=== PATIENT | female | born 1940 | race Caucasian/White ===

== ENCOUNTER 2022-02-01 17:23 | Inpatient (IN) | payer MEDICARE, MEDICAID, SELFPAY ==
--- NOTE | ~2022-02-01 | CT_ITS ---
EXAMINATION: CT abdomen pelvis w con DATE: 02/01/2022 19:35 INDICATION: Bilateral flank pain TECHNIQUE: Computed tomography (CT) of the abdomen and pelvis was performed with 100 cc Omnipaque 350 intravenous contrast. The dose-length product was 473.15 mGy-cm. Automated exposure control and iter ative reconstruction technique were employed. COMPARISON: None. FINDINGS: There is dependent atelectasis. There is emphysema. Heart size is normal. Moderate size hia mery hernia. There is a small liver cyst. The spleen, pancreas, adrenal glands and kidneys are unremar kable. Gallbladder is present. There is atherosclerosis of the aorta without aneurysm. Nonobstructive bowel gas pattern. No significant vascular abnormality. No lymphadenopathy. No free air or free flui d. Generalized osteopenia. Moderate osteoarthritis of the hips. There are multiple age-indeterminate compression fractures of T12, L3, L4 and L5. Burst fracture of L1. IMPRESSION: 1. No acute abdominal abnormality. 2: Moderate emphysema. 3: Multiple age-indeterminate compression fractures of the lower thoracic and lumbar spine. Reviewed, dictated and finalized at location A.
--- NOTE | ~2022-02-01 | CT_ITS ---
EXAMINATION: CTA chest PE protocol DATE: 02/04/2022 16:50 INDICATION: COPD, R/O PE TECHNIQUE: Computed tomography angiography (CTA) of the chest was performed with 100 mL Omnipaque-350 intravenous contrast timed to evaluate the pulmonary arteries. Coronal maximum intensity projection 3D-reconstructions were created by the technologist. The dose-length product (DLP) was 385.34 mGy-cm. Automated exposure control and iterative reconstruction technique were employed. COMPARISON: None. FINDINGS: Lung parenchyma and airways: Apical blebs. Emphysematous change. Pleura: Biapical pleural scarring. Fat-containing posterior diaphragmatic hernia. Thoracic inlet, axillae and chest wall: Unremarkable. Thoracic aorta: Mild ectasia. Moderate arch calcification. Mediastinum: Moderate hiatal hernia. Heart and pericardium: Normal. Coronary artery calcifications: Mild. Upper abdomen: No significant finding. Bones: No acute osseous finding. Stable thoracolumbar compression fractures. Pulmonary arteries: Study quality: Adequate. No pulmonary emboli detected. IMPRESSION: No CT evidence of acute pulmonary embolus. Reviewed, dictated and finalized at location K.
--- NOTE | ~2022-02-01 | XR_ITS ---
XR chest 1V portable 02/01/2022 19:07 Indication: Shortness of breath. Chronic oxygen therapy. COPD. Procedure: AP portable chest Comparison: 03/20/2018 Findings: Heart size normal. The lungs are hyperinflated which is consistent with, but not diagnostic of chronic obstructive pulmonary disease. There is chronic apical pleural thickening/scarring. No fo giovana air space disease, pulmonary edema, pleural effusion or suspected pneumothorax. Impression: 1: No acute cardiopulmonary disease. Reviewed, dictated and finalized at location A. Impression: 1: No acute cardiopulmonary disease.
[2022-02-01 17:22] VITALS: BP 140/80; PULSE 103; RESP 20; TEMP 37.7; O2SAT 97
--- NOTE | 2022-02-01 17:35 | ECG_ITS ---
Measurements Intervals [place] Rate: 92 P: 76 CO: 132 QRS: 61 QRSD: 90 T: 50 QT: 340 QTc: 421 Interpretive Statements SINUS RHYTHM WITH SINUS ARRHYTHMIA POSSIBLE LEFT ATRIAL ENLARGEMENT [-0.1mV P WAVE IN V1/V2] NONSPECIFIC ST & T-WAVE ABNORMALITY NO PREVIOUS ECG AVAILABLE FOR COMPARISON Electronically Signed On 02-02-2022 7:58:49 CDT by Smooth Moreland M.D.
[2022-02-01] MEDS: SODIUM CHLORIDE 0.9% IV 1,000 ML 999 ML IV CONT (18:05)
--- NOTE | 2022-02-01 18:05 | ED.BACK ---
HPI - Back Pain/Injury General Chief Complaint: Back Pain/Injury Stated Complaint: bilat flank pain Time Seen by Provider: 02/01/22 17:54 Source: patient, EMS and old records reviewed Mode of arrival: EMS Limitations: clinical condition History of Present Illness HPI Narrative: Patient is an 81 y/o female who presents to the ED via EMS with c/o bilateral flank and abdominal pain. Patient reports she was sent to the ED by her grandson today. She is unsure why she is here. She is complaining of lower abdominal pain. There is a strong smell of urine. Patient was found to be in soiled depends and clothes. Patient denying nausea or vomiting. Denying chest pain. She does report shortness of breath. Denies cough. She does have history of COPD. She chronically wears 3 L nasal cannula. She denies running out of oxygen at home. 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 Related Data Home Medications Medication Instructions Recorded Confirmed albuterol sulfate 90 mcg/actuation 1 puff inhalation PRN PRN 02/02/22 02/02/22 aerosol inhaler Shortness Of Breath Or Wheezing fluticasone fur. 100 mcg-umeclid 1 inh inhalation DAILY 02/02/22 02/02/22 62.5 mcg-vilant 25 mcg inhalat.powder (Trelegy Ellipta) hydrocodone 5 mg-acetaminophen 325 1 tablet PO PRN pain 02/02/22 02/02/22 mg tablet meclizine 25 mg tablet 25 mg PO PRN vertigo 02/02/22 02/02/22 pantoprazole 40 mg tablet,delayed 40 mg PO DAILY 02/02/22 02/02/22 release prednisone 10 mg tablet 10 mg PO DAILY 02/02/22 02/02/22 Allergies Allergy/AdvReac Type Severity Reaction Status Date / Time No Known Allergies Allergy Verified 02/01/22 17:40 Review of Systems Review of Systems: CONSTITUTIONAL: Denies fever, chills, or sweats. CARDIOVASCULAR: Denies chest pain. RESPIRATORY: Reports dyspnea. Denies cough. GASTROINTESTINAL: Reports lower abdominal pain. Denies nausea, vomiting, or diarrhea. GENITOURINARY: Denies dysuria or hematuria. MUSCULOSKELETAL: Reports bilateral flank pain. ROS unobtainable: Yes unobtainable due to mental status PMFSH Past Medical History Medical History (Updated 02/02/22 @ 00:01 by Sunshine Sheth PA-C) Chronic respiratory failure with hypoxia, on home oxygen therapy COPD (chronic obstructive pulmonary disease) GERD (gastroesophageal reflux disease) Vertigo Surgical History Surgical History (Updated 02/02/22 @ 00:01 by Sunshine Sheth PA-C) History of appendectomy Social History Social History (Updated 02/02/22 @ 00:01 by Sunshine Sheth PA-C) Smoking status: Former smoker Alcohol intake: never Substance use: never Spiritual care concerns: No Exam Narrative: GENERAL: Mildly ill appearing, obese, non-toxic, in no acute distress. HEAD: Normocephalic, atraumatic. THROAT: Pharynx clear, no exudate. MMs dry. NECK: Supple. No adenopathy, no masses. RESPIRATORY: Airway patent, respirations mildly labored. No significant tachypnea, but some abdominal accessory muscle use. Occasional expiratory wheezing. CARDIOVASCULAR: Tachycardic with regular rhythm without murmurs, rubs, or gallops. Peripheral pulses 2+ and equal bilaterally. ABDOMINAL: Soft, diffuse tenderness throughout lower abdomen/over suprapubic region, nondistended, no hepatosplenomegaly. Normoactive BS. MUSCULOSKELETAL: Moves all extremities. Strength/ROM intact without gross deformities or TTP. No edema. No calf tenderness. SKIN: Warm, dry, normal color. No rashes. NEURO: A&O X2-3, unsure of month/year. Speech clear. Cranial nerves II-XII grossly intact. Steady gait. No ataxic movements. No focal deficits. PSYCHIATRIC: Appropriate mood and affect. Normal interaction. Course Consultations Consultation #1: Discussed case with Dr. Singletary, hospitalist, accepted admission. Date: 02/01/22 Time: 23:55 Vital Signs Vital signs: Vital Signs Temperature 99.8 F H 02/01/22 17: Pulse Rate 103 H 02/01/22 17:22 Respiratory Rate 20 02/01/22 17
[2022-02-01 18:29] LABS: Mucus Urine Rare /lpf; RBC Urine 51-75 /hpf (0-2); WBC Urine 0-3 /hpf
[2022-02-01 18:35] LABS: Add Urine Microscopic? YES; Appearance Urine Clear (Clear); Bilirubin Urine 1+ (Negative); Blood Urine 3+ (Negative); Color Urine Yellow (Yellow); Glucose Urine UA Negative (Negative); Ketones Urine 1+ mg/dL (Negative); Leukocyte Esterase Ur Negative LEU/UL (Negative); Nitrate Urine Negative (Negative); Protein Urine 1+ mg/dL (Negative); Urobilinogen Urine 0.2 mg/dL (<2.0)
[2022-02-01 18:43] LABS: Basophils Percent Auto 0.2 % (0.2-1.2); Eosinophils Absolute Auto 0.1 K/mm3 (0-0.3); Eosinophils Percent Auto 0.4 % (0-4.4); Hematocrit 43.8 % (37.0-47.0); Hemoglobin 13.4 g/dL (12.0-15.0); Immature Granulocyte Absolute 0.05 K/mm3 (0.00-0.031); Immature Granulocyte Percent A 0.4 % (0-0.5); Lymphocytes Absolute Auto 1.67 K/mm3 (0.9-3.2); Lymphocytes Percent Auto 13.2 % (18.3-44.2); Mean Corpuscular HGB Conc 30.6 g/dl (32-36); Mean Corpuscular Hemoglobin 29.6 pg (26-34); Mean Corpuscular Volume 96.9 fl (80-100); Mean Platelet Volume 8.7 fl (7.4-10.4); Monocytes Absolute Auto 0.8 K/mm3 (0.1-0.6); Monocytes Percent Auto 6.4 % (2.6-8.5); Neutrophils Absolute Auto 10.1 K/mm3 (1.3-6.7); Neutrophils Percent Auto 79.4 % (45.5-73.1); Platelet Count Result 304 k/mm3 (150-375); Red Blood Count 4.52 M/mm3 (4.2-5.4); Red Cell Distribution Width 13.7 % (11.5-14.5); White Blood Count 12.7 K/mm3 (4.5-10.0)
--- NOTE | 2022-02-01 18:47 | PC.NURSE ---
Pt BARON Summers calling and requested she be notified w/ any updates/POC. #[phone]
[2022-02-01 18:51] VITALS: PULSE 78; RESP 16; TEMP 37.1; O2SAT 99
[2022-02-01 19:02] LABS: Lactic Acid Reflex 1.5 mmol/L (0.7-2.0)
[2022-02-01 19:05] LABS: Alanine Aminotransferase 12 U/L (6-35); Albumin Level 4.2 g/dL (3.5-5.1); Alkaline Phosphatase 126 U/L (38-126); Anion Gap 10 mmol/L (8-16); Aspartate Amino Transferase 23 U/L (14-36); Bilirubin,Total 0.8 mg/dL (0.2-1.3); Blood Urea Nitrogen 27 mg/dL (7-17); Calcium 9.2 mg/dL (8.4-10.2); Carbon Dioxide 34 mmol/L (22-30); Chloride 97 mmol/L (98-107); Estimated Glomerular Filt Rate 60; Glucose 119 mg/dL (65-110); Potassium 3.3 mmol/L (3.4-5.0); Sodium 141 mmol/L (137-145)
[2022-02-01 21:05] LABS: Troponin I 0.013 ng/mL (0.000-0.034)
[2022-02-01 21:08] LABS: D Dimer 1.69 ug/mL (<0.48)
[2022-02-01] MEDS: IPRATROPIUM BR 0.02% INH SOLN 0.5 MG/2.5 ML VIAL 1.5 MG INHALATION (21:16)
[2022-02-01] MEDS: ALBUTEROL SULFATE NEB 2.5 MG/3 ML INH 15 MG INHALATION (21:16)
[2022-02-01 21:20] VITALS: PULSE 85; RESP 14
[2022-02-01 21:29] LABS: Base Excess ABG 4.5 mEq/l (+/-2.0); Carboxyhemoglobin 2.2 % THb (0-2.0); Fractional Inspired Oxygen 32 %; HCO3 ABG 30.8 mEq/l (22.0-26.0); Methemoglobin ABG 0.3 %THb (0-1.5); Oxygen Saturation ABG 99.4 % (95.0-100.0); Oxyhemoglobin 96.8 % THb (90.0-100.0); PCO2 ABG 53.5 mmHg (35.0-45.0); PO2 ABG 214.3 mmHg (80.0-100.0); Reduced Hemoglobin 0.7 %THb (0-5.0); Total Hemoglobin 12.1 g/dL (12.0-18.0); pH ABG 7.378 (7.350-7.450)
[2022-02-01 21:31] LABS: Device NASAL CANNULA; Modified Allen's Test Pass; Site Drawn LEFT RADIAL
[2022-02-01 22:40] VITALS: BP 133/95; PULSE 113; RESP 18; O2SAT 100
[2022-02-01] MEDS: methylPREDNISolone SOD SUCC 125 MG VIAL IV PUSH (22:40)
[2022-02-02] VITALS (15 sets, daily range): BP systolic 120–152; BP diastolic 63–82; PULSE 78–105; RESP 14–20; TEMP 36.4–36.7; O2SAT 94–98; BMI 27.3
--- NOTE | 2022-02-02 00:50 | PC.NURSE ---
report received from Essence WEBB Ed, no home medication in computer, pt arrived with no home medication list, called son to determine if pt take home medication, no answer, message left to call back. Awaiting pt arrival to floor.
--- NOTE | 2022-02-02 01:35 | PC.NURSE ---
This patient, Erlinda Pak, was admitted to 3 [facility] Surg Room 322-01. Patient/family oriented to hospital policies and general routines including ID bracelet, bed and alarms, visiting hours, pain management, procedures, bathroom and other care routines, personal items, smoking policy, room service/diet, and visiting hours. Information on how to activate the Rapid Response Team has been discussed. Patient/Family are encouraged to report perceived risks to care and to ask questions if they do not understand what they are told or what they should do. report received for Andrew WEBB Ed.
--- NOTE | 2022-02-02 01:39 | PC.NURSE ---
called Md Singletary informed pt medication clarified.
--- NOTE | 2022-02-02 05:36 | PM.IMHP ---
H&P: HPI History of Present Illness Date/Time: 02/02/22 05:36 Chief Complaint: shortness of breath Narrative: This is an 81-year-old female with past medical history significant for COPD, chronic respiratory failure with hypoxia on supplemental oxygen, gastroesophageal reflux disease, patient was brought to the emergency room due to patient being unable to care for herself son found her covered in feces and urine and in distress patient complained of abdominal pain however preliminary workup was significant for CT of abdomen and pelvis was negative for any findings intra-abdominal but did show emphysema and an ABG showed a pCO2 of 53 patient is unable to give much history she is confused. patient has been admitted for further evaluation management and treatment. Review of Systems Review of Systems: ROS unobtainable: Yes unobtainable due to mental status ( confused) [facility] Past Medical History Medical History (Updated 02/02/22 @ 19:34 by Abbie Betancourt MD) Chronic respiratory failure with hypoxia, on home oxygen therapy COPD (chronic obstructive pulmonary disease) GERD (gastroesophageal reflux disease) Vertigo Surgical History Surgical History (Updated 02/04/22 @ 14:47 by Abbie Betancourt MD) History of appendectomy Family History Family History (Updated 02/04/22 @ 14:46 by Abbie Betancourt MD) Other History of appendectomy Social History Social History (Updated 02/02/22 @ 00:01 by Sunshine Sheth PA-C) Smoking status: Former smoker Alcohol intake: never Substance use: never Spiritual care concerns: No Meds Home Medications and Allergies Home Medications Medication Instructions Recorded Confirmed Type albuterol sulfate 90 mcg/actuation 1 puff inhalation PRN PRN 02/02/22 02/02/22 History aerosol inhaler Shortness Of Breath Or Wheezing fluticasone fur. 100 mcg-umeclid 1 inh inhalation DAILY 02/02/22 02/02/22 History 62.5 mcg-vilant 25 mcg inhalat.powder (Trelegy Ellipta) hydrocodone 5 mg-acetaminophen 325 1 tablet PO PRN PRN Pain 02/02/22 02/02/22 History mg tablet meclizine 25 mg tablet 25 mg PO PRN vertigo 02/02/22 02/02/22 History pantoprazole 40 mg tablet,delayed 40 mg PO DAILY 02/02/22 02/02/22 History release prednisone 10 mg tablet 10 mg PO DAILY 02/02/22 02/02/22 History hydrocodone 5 mg-acetaminophen 325 1 tablet PO Q6H PRN Pain #12 tabs 02/06/22 Rx mg tablet prednisone 10 mg tablet 10 mg PO DAILY #30 tabs 02/06/22 Rx Allergies Allergy/AdvReac Type Severity Reaction Status Date / Time No Known Allergies Allergy Verified 02/01/22 17:40 Vital Signs Vital Signs - 24 hr 02/01/22 17:22 02/01/22 18:51 02/01/22 18:51 Temperature 99.8 F H 98.8 F 98.8 F Pulse Rate 103 H 78 Respiratory Rate 20 16 Blood Pressure 140/80 Pulse Oximetry 97 99 Oxygen Delivery Nasal Cannula Oxygen Flow Rate 3 02/01/22 21:20 02/01/22 22:40 02/02/22 01:05 Temperature Pulse Rate 85 113 H 105 H Respiratory Rate 14 18 16 Blood Pressure 133/95 H Pulse Oximetry 100 95 Oxygen Delivery Nasal Cannula Oxygen Flow Rate 3 02/02/22 00:44 02/02/22 04:00 02/02/22 05:03 Temperature Pulse Rate 105 H 78 Respiratory Rate 16 Blood Pressure 120/63 Pulse Oximetry 95 94 Oxygen Delivery Nasal Cannula Oxygen Flow Rate 3 Exam Narrative: patient laying in a stretcher Const: General: comfortable, no acute distress, well developed, alert, awake, ill appearing chronically, lethargic and average body habitus Nutritional Appearance: average body habitus Orientation/consciousness: oriented to person HENMT: Head: normal to inspection, normocephalic and atraumatic Ears: hearing grossly normal bilaterally Face/Nose/Sinus: normal facial exam Face and sinus: normal facial exam Eyes: General: appearance normal, both eyes and all related structures Pupils: Equal, round and reactive pupils present EOM: EOMs intact bilaterally Neck:
[2022-02-02 12:03] LABS: Basophils Percent Auto 0.1 % (0.2-1.2); Hematocrit 36.5 % (37.0-47.0); Hemoglobin 11.2 g/dL (12.0-15.0); Immature Granulocyte Absolute 0.12 K/mm3 (0.00-0.031); Immature Granulocyte Percent A 1.1 % (0-0.5); Lymphocytes Absolute Auto 0.29 K/mm3 (0.9-3.2); Lymphocytes Percent Auto 2.6 % (18.3-44.2); Mean Corpuscular HGB Conc 30.7 g/dl (32-36); Mean Corpuscular Hemoglobin 29.2 pg (26-34); Mean Corpuscular Volume 95.3 fl (80-100); Mean Platelet Volume 8.8 fl (7.4-10.4); Monocytes Absolute Auto 0.2 K/mm3 (0.1-0.6); Monocytes Percent Auto 1.5 % (2.6-8.5); Neutrophils Absolute Auto 10.5 K/mm3 (1.3-6.7); Neutrophils Percent Auto 94.7 % (45.5-73.1); Platelet Count Result 274 k/mm3 (150-375); Red Blood Count 3.83 M/mm3 (4.2-5.4); Red Cell Distribution Width 13.8 % (11.5-14.5); White Blood Count 11.1 K/mm3 (4.5-10.0)
[2022-02-02] MEDS: ALBUTEROL SULFATE NEB 2.5 MG/3 ML INH INHALATION (12:24)
[2022-02-02] MEDS: IPRATROPIUM BR 0.02% INH SOLN 0.5 MG/2.5 ML VIAL INHALATION ×2 (12:24→20:04)
[2022-02-02] MEDS: FLUTICASONE/UMECLIDIN/VILANTER 100-62.5-25 MCG ELLIPTA 1 PUFF INHALATION (12:25)
[2022-02-02 12:38] LABS: Alanine Aminotransferase 15 U/L (6-35); Albumin Level 3.9 g/dL (3.5-5.1); Alkaline Phosphatase 105 U/L (38-126); Anion Gap 9 mmol/L (8-16); Aspartate Amino Transferase 20 U/L (14-36); Bilirubin,Total 0.4 mg/dL (0.2-1.3); Blood Urea Nitrogen 28 mg/dL (7-17); Carbon Dioxide 30 mmol/L (22-30); Chloride 101 mmol/L (98-107); Estimated Glomerular Filt Rate 60; Glucose 150 mg/dL (65-110); Magnesium 2.1 mg/dL (1.6-2.3); Potassium 3.9 mmol/L (3.4-5.0); Sodium 140 mmol/L (137-145)
[2022-02-02 12:39] LABS: CRP 20.6 mg/dL (<1.0)
[2022-02-02 12:41] LABS: Procalcitonin 0.3 ng/mL
[2022-02-02 12:44] LABS: Erythrocyte Sedimentation Rate 118 mm/hr (0-20)
--- NOTE | 2022-02-02 14:24 | PC.NURSE ---
Called pharmacy at [phone] and [phone] for new medication to be sent up.
--- NOTE | 2022-02-02 15:04 | PC.NURSE ---
Called pharmacy again at [phone] for medication, Christian stated he will send them up.
[2022-02-02] MEDS: methylPREDNISolone SOD SUCC 125 MG VIAL 60 MG IV PUSH (16:29)
[2022-02-02] MEDS: PANTOPRAZOLE 40 MG TABLET PO (16:29)
--- NOTE | 2022-02-02 19:05 | PM.IMPN ---
Progress Note: A&P Assessment and Plan (1) Acute exacerbation of chronic obstructive pulmonary disease (COPD): Code(s): J44.1 - Chronic obstructive pulmonary disease with (acute) exacerbation Status: Acute (2) Acute on chronic respiratory failure with hypoxia and hypercapnia: Code(s): J96.21 - Acute and chronic respiratory failure with hypoxia; J96.22 - Acute and chronic respiratory failure with hypercapnia Status: Acute (3) Chronic respiratory failure with hypoxia, on home oxygen therapy: Code(s): J96.11 - Chronic respiratory failure with hypoxia; Z99.81 - Dependence on supplemental oxygen Status: Acute (4) GERD (gastroesophageal reflux disease): Code(s): K21.9 - Gastro-esophageal reflux disease without esophagitis Status: Acute (5) Compression fracture of lumbar vertebrae, non-traumatic: Code(s): M48.56XA - Collapsed vertebra, not elsewhere classified, lumbar region, initial encounter for fracture Status: Acute (6) Burst fracture of lumbar vertebra: Code(s): S32.001A - Stable burst fracture of unspecified lumbar vertebra, initial encounter for closed fracture Status: Acute Plan admit to med surg steroids duonebs PT/OT pain control TSLO brace when out of bed supportive care per pts request hospice discussion tomorrow w family Subjective Date/time seen: 02/02/22 19:05 spoke w pt she is AAOX3 during my interview we discuss her strong desire to go home, her refusal to go to rehab, and her appropriateness for hospice pt states that she does not want to be resuscitated if her her heart were to stop or she became pulseless. she knows that her COPD is a progressive disease and sometimes she goes to sleep at night wondering if she will wake up. She has a caregiver that comes 5 times a week paid for by Medicare. She asks for me to call her [id number] so we can discuss hospice for her. I have Melina as requested and we review possible discharge scenarios. She will speak with Erlinda's 2 sons and the family will come to the hospital tomorrow to speak w me and the pt. + back pain + weakness Review of Systems Review of Systems: All systems reviewed & are unremarkable except as noted in HPI and below Objective Data Vital Signs Vital Signs: Vital Signs - 24 hr 02/01/22 21:20 02/01/22 22:40 02/02/22 01:05 Temperature Pulse Rate 85 113 H 105 H Respiratory Rate 14 18 16 Blood Pressure 133/95 H Pulse Oximetry 100 95 Oxygen Delivery Nasal Cannula Oxygen Flow Rate 3 02/02/22 00:44 02/02/22 04:00 02/02/22 05:03 Temperature Pulse Rate 105 H 78 Respiratory Rate 16 Blood Pressure 120/63 Pulse Oximetry 95 94 Oxygen Delivery Nasal Cannula Oxygen Flow Rate 3 02/02/22 06:00 02/02/22 08:00 02/02/22 08:00 Temperature 98.1 F Pulse Rate 102 H 89 Respiratory Rate 14 Blood Pressure Pulse Oximetry 94 94 Oxygen Delivery Nasal Cannula Oxygen Flow Rate 3 02/02/22 12:29 02/02/22 12:29 02/02/22 12:03 Temperature Pulse Rate 102 H 102 H Respiratory Rate 20 20 Blood Pressure Pulse Oximetry 96 Oxygen Delivery Nasal Cannula Nasal Cannula Oxygen Flow Rate 3 3 02/02/22 12:48 02/02/22 14:00 02/02/22 12:00 Temperature 97.6 F Pulse Rate 100 100 102 H Respiratory Rate 20 16 Blood Pressure 132/82 Pulse Oximetry 94 Oxygen Delivery Oxygen Flow Rate 02/02/22 16:00 Temperature Pulse Rate 89 Respiratory Rate Blood Pressure Pulse Oximetry Oxygen Delivery Oxygen Flow Rate Intake/Output Intake/Output: Intake & Output 01/30/22 01/31/22 02/01/22 02/02/22 23:59 23:59 23:59 23:59 Intake Total 1100 1280 Output Total 300 500 Balance 800 780 Meds/Results Medications: Active Medications Generic Name Dose Route Start Last Admin Trade Name Freq PRN Reason Stop Dose Admin Hydrocodone Bitart/Acetaminophen 1 tab 02/02/22 11:21 Hydrocodone/Acetaminophen (*
--- NOTE | 2022-02-02 19:10 | PC.NURSE ---
charge nurse April informed pt will need TLSO brace from [employer] possible Friday r/t L1 burst fx and multiple compression fx lumbar and thoracic region.
[2022-02-02 19:38] LABS: Creatine Kinase 40 U/L (30-135)
[2022-02-03] VITALS (19 sets, daily range): BP systolic 129–148; BP diastolic 65–72; PULSE 79–102; RESP 12–20; TEMP 36.2–36.9; O2SAT 92–98
[2022-02-03] MEDS: IPRATROPIUM BR 0.02% INH SOLN 0.5 MG/2.5 ML VIAL INHALATION ×6 (00:10→23:53)
[2022-02-03 07:26] LABS: Basophils Percent Auto 0.1 % (0.2-1.2); Hematocrit 33.9 % (37.0-47.0); Hemoglobin 10.6 g/dL (12.0-15.0); Immature Granulocyte Absolute 0.17 K/mm3 (0.00-0.031); Lymphocytes Absolute Auto 0.49 K/mm3 (0.9-3.2); Lymphocytes Percent Auto 2.9 % (18.3-44.2); Mean Corpuscular HGB Conc 31.3 g/dl (32-36); Mean Corpuscular Hemoglobin 30.1 pg (26-34); Mean Corpuscular Volume 96.3 fl (80-100); Mean Platelet Volume 9.3 fl (7.4-10.4); Monocytes Absolute Auto 0.5 K/mm3 (0.1-0.6); Neutrophils Absolute Auto 15.6 K/mm3 (1.3-6.7); Platelet Count Result 286 k/mm3 (150-375); Red Blood Count 3.52 M/mm3 (4.2-5.4); Red Cell Distribution Width 13.7 % (11.5-14.5); White Blood Count 16.7 K/mm3 (4.5-10.0)
[2022-02-03 07:37] LABS: Alanine Aminotransferase 12 U/L (6-35); Albumin Level 3.5 g/dL (3.5-5.1); Alkaline Phosphatase 85 U/L (38-126); Anion Gap 10 mmol/L (8-16); Aspartate Amino Transferase 17 U/L (14-36); Bilirubin,Total 0.3 mg/dL (0.2-1.3); Blood Urea Nitrogen 32 mg/dL (7-17); Calcium 8.9 mg/dL (8.4-10.2); Carbon Dioxide 32 mmol/L (22-30); Chloride 100 mmol/L (98-107); Estimated CRCL calculation 35 ml/min; Estimated Glomerular Filt Rate 53; Glucose 161 mg/dL (65-110); Magnesium 2.3 mg/dL (1.6-2.3); Phosphorus 3.6 mg/dL (2.5-4.5); Potassium 3.8 mmol/L (3.4-5.0); Sodium 142 mmol/L (137-145)
[2022-02-03] MEDS: ALBUTEROL SULFATE NEB 2.5 MG/3 ML INH INHALATION ×2 (07:50→23:53)
[2022-02-03] MEDS: FLUTICASONE/UMECLIDIN/VILANTER 100-62.5-25 MCG ELLIPTA 1 PUFF INHALATION (07:52)
[2022-02-03] MEDS: methylPREDNISolone SOD SUCC 125 MG VIAL 60 MG IV PUSH ×3 (08:25→20:43)
[2022-02-03] MEDS: PANTOPRAZOLE 40 MG TABLET PO (08:27)
--- NOTE | 2022-02-03 10:00 | PM.IMPN ---
Progress Note: A&P Assessment and Plan (1) Acute exacerbation of chronic obstructive pulmonary disease (COPD): Code(s): J44.1 - Chronic obstructive pulmonary disease with (acute) exacerbation Status: Acute (2) Acute on chronic respiratory failure with hypoxia and hypercapnia: Code(s): J96.21 - Acute and chronic respiratory failure with hypoxia; J96.22 - Acute and chronic respiratory failure with hypercapnia Status: Acute (3) Chronic respiratory failure with hypoxia, on home oxygen therapy: Code(s): J96.11 - Chronic respiratory failure with hypoxia; Z99.81 - Dependence on supplemental oxygen Status: Acute (4) GERD (gastroesophageal reflux disease): Code(s): K21.9 - Gastro-esophageal reflux disease without esophagitis Status: Acute Plan admit to med surg steroids duonebs PT/OT pain control TSLO brace when out of bed supportive care per pts request hospice discussion tomorrow w family 02/03/22 TSLO brace ordered will be delivered tomorrow cont current care dc planning to SNF c/s network coordinator dc in 24-48hrs Subjective Date/time seen: 02/03/22 10:00 pt seen w increased work of breathing agrees that if she cannot walk then she will go to rehab. [facility] bedside for conversation. TSLO brace ordered will be delivered tomorrow Review of Systems Review of Systems: All systems reviewed & are unremarkable except as noted in HPI and below Objective Data Vital Signs Vital Signs: Vital Signs - 24 hr 02/02/22 12:29 02/02/22 12:29 02/02/22 12:03 Temperature Pulse Rate 102 H 102 H Respiratory Rate 20 20 Blood Pressure Pulse Oximetry 96 Oxygen Delivery Nasal Cannula Nasal Cannula Oxygen Flow Rate 3 3 02/02/22 12:48 02/02/22 14:00 02/02/22 12:00 Temperature 97.6 F Pulse Rate 100 100 102 H Respiratory Rate 20 16 Blood Pressure 132/82 Pulse Oximetry 94 Oxygen Delivery Oxygen Flow Rate 02/02/22 16:00 02/02/22 19:12 02/02/22 20:07 Temperature Pulse Rate 89 97 Respiratory Rate 14 Blood Pressure Pulse Oximetry 95 Oxygen Delivery Nasal Cannula Oxygen Flow Rate 3 02/02/22 21:28 02/02/22 20:00 02/03/22 00:11 Temperature 97.7 F Pulse Rate 93 92 89 Respiratory Rate 16 14 Blood Pressure 152/69 H Pulse Oximetry 98 Oxygen Delivery Oxygen Flow Rate 02/03/22 00:00 02/03/22 04:00 02/03/22 06:00 Temperature 97.9 F Pulse Rate 79 82 79 Respiratory Rate 14 Blood Pressure 129/65 Pulse Oximetry 92 Oxygen Delivery Oxygen Flow Rate 02/03/22 07:51 02/03/22 07:51 02/03/22 08:38 Temperature Pulse Rate 102 H 86 100 Respiratory Rate 16 16 16 Blood Pressure Pulse Oximetry 98 Oxygen Delivery Nasal Cannula Oxygen Flow Rate 3 Intake/Output Intake/Output: Intake & Output 01/31/22 02/01/22 02/02/22 02/03/22 23:59 23:59 23:59 23:59 Intake Total 1100 1280 720 Output Total 300 500 150 Balance 800 780 570 Meds/Results Medications: Active Medications Generic Name Dose Route Start Last Admin Trade Name Freq PRN Reason Stop Dose Admin Hydrocodone Bitart/Acetaminophen 1 tab 02/02/22 11:21 Hydrocodone/Acetaminophen (*Crx) 5-325 Mg Tablet PO BID PRN Pain Albuterol 2.5 mg 02/02/22 11:27 02/03/22 07:50 Albuterol Sulfate Neb 2.5 Mg/3 Ml Inh INHALATION 2.5 mg Q4HRT PRN Administration Shortness Of Breath Fluticasone/Umeclidinium/Vilanterol 1 puff 02/02/22 12:00 02/03/22 07:52 Fluticasone/Umeclidin/Vilanter 100-62.5-25 Mcg Ellipta INHALATION 1 puff DAILYRT LORENA Administration Ipratropium [place] 0.5 mg 02/02/22 12:00 02/03/22 07:50 Ipratropium Br 0.02% Inh Soln 0.5 Mg/2.5 Ml Vial INHALATION 0.5 mg Q4HRT LORENA Administration Meclizine HCl 25 mg 02/02/22 11:25 Meclizine Hcl 25 Mg Tablet PO Q8H PRN DIZZINESS/VERTIGO Methylprednisolone Sodium Succinate 60 mg 02/02/22 17:00 02/03/22 08:25 Meth
[2022-02-03] MEDS: ALBUTEROL SULFATE NEB 2.5 MG/3 ML INH ×2 (18:32→18:39)
[2022-02-03] MEDS: IPRATROPIUM BR 0.02% INH SOLN 0.5 MG/2.5 ML VIAL (18:39)
--- NOTE | 2022-02-03 19:04 | PCRCNOTE ---
RT given pt TX at 1829. pt breath sound diminished and coarse bilateral. No SOB or increased WOB present at this time, pt was talking what appeared comfortably with family. RT spoke with RN and Dr. Betancourt, pt TX orders has been revised. Pt is order Q4 TX dounebs. Pt next schedule TX is to be given 0000, 02/04/22. Pt is resting RR-14-16, Sp02 95% on 3 liters her home baseline.
[2022-02-04] VITALS (19 sets, daily range): BP systolic 142–155; BP diastolic 64–76; PULSE 78–98; RESP 14–24; TEMP 36.1–36.7; O2SAT 91–100
[2022-02-04] MEDS: IPRATROPIUM BR 0.02% INH SOLN 0.5 MG/2.5 ML VIAL INHALATION ×4 (03:10→20:19)
[2022-02-04] MEDS: ALBUTEROL SULFATE NEB 2.5 MG/3 ML INH INHALATION ×5 (03:10→20:19)
[2022-02-04] MEDS: FLUTICASONE/UMECLIDIN/VILANTER 100-62.5-25 MCG ELLIPTA 1 PUFF INHALATION (08:07)
[2022-02-04] MEDS: PANTOPRAZOLE 40 MG TABLET PO (10:11)
[2022-02-04] MEDS: methylPREDNISolone SOD SUCC 125 MG VIAL 60 MG IV PUSH (10:11)
[2022-02-04 11:12] LABS: Basophils Percent Auto 0.1 % (0.2-1.2); Hematocrit 36.4 % (37.0-47.0); Hemoglobin 11.2 g/dL (12.0-15.0); Immature Granulocyte Absolute 0.33 K/mm3 (0.00-0.031); Immature Granulocyte Percent A 1.7 % (0-0.5); Lymphocytes Absolute Auto 0.24 K/mm3 (0.9-3.2); Lymphocytes Percent Auto 1.2 % (18.3-44.2); Mean Corpuscular HGB Conc 30.8 g/dl (32-36); Mean Corpuscular Hemoglobin 29.9 pg (26-34); Mean Corpuscular Volume 97.1 fl (80-100); Mean Platelet Volume 8.8 fl (7.4-10.4); Monocytes Percent Auto 5.1 % (2.6-8.5); Neutrophils Absolute Auto 17.8 K/mm3 (1.3-6.7); Neutrophils Percent Auto 91.9 % (45.5-73.1); Platelet Count Result 302 k/mm3 (150-375); Red Blood Count 3.75 M/mm3 (4.2-5.4); Red Cell Distribution Width 13.7 % (11.5-14.5); White Blood Count 19.4 K/mm3 (4.5-10.0)
[2022-02-04 11:22] LABS: Anion Gap 8 mmol/L (8-16); Blood Urea Nitrogen 39 mg/dL (7-17); Calcium 8.8 mg/dL (8.4-10.2); Carbon Dioxide 33 mmol/L (22-30); Chloride 102 mmol/L (98-107); Estimated CRCL calculation 35 ml/min; Estimated Glomerular Filt Rate 53; Glucose 163 mg/dL (65-110); Potassium 3.4 mmol/L (3.4-5.0); Sodium 143 mmol/L (137-145)
[2022-02-04 11:42] LABS: D Dimer 1.08 ug/mL (<0.48)
[2022-02-04 11:44] LABS: Hypersegmented Neutrophils Present; Platelet Estimate Adequate (Adequate)
[2022-02-04 11:45] LABS: Poikilocytosis 1+ (NORMAL); Schistocytes None Seen (NORMAL)
--- NOTE | 2022-02-04 13:41 | PCOTNOTE ---
Attempted to see pt this PM, however pt is eating lunch at this time. Continue with plan of care.
--- NOTE | 2022-02-04 13:57 | PM.CNPUL ---
Assessment and Plan Assessment and plan (1) Acute exacerbation of chronic obstructive pulmonary disease (COPD): Code(s): J44.1 - Chronic obstructive pulmonary disease with (acute) exacerbation Status: Acute Assessment and Plan: Patient with current tobacco use (33 PY, current smoking 0.5 PPD), COPD for 5 years on home O2 3 L 24-7, CT of the abdomen and pelvis on 02/01/2022 with [id number] panlobular emphysema. I have no PFTs. Patient is on prednisone 10 mg a day for years as well as triple inhaler with trelegy 100. At baseline the patient states she is short of breath walking across the room on a good day. One year ago she said she could walk half a block. the patient presented with wheezing and I agree with treatment for COPD exacerbation. The patient has been on Solu-Medrol since 02/01 at 10:00 p.m. and currently is on 40 mg q.day. at this point she feels she is no better than when she arrived to the hospital and I would discontinue her inhaled trilogy and place her on albuterol 2.5 mg q.4 hours nebulized and ipratropium 0.5 mg q.4 hours nebulized. I will continue her Solu-Medrol at 40 mg a day. The patient had a blood gas on admission 7.38/58/214 on 3 L nasal cannula. Patient has a serum bicarbonate of 33 today and this was 34 on admission. Of note from 07/15/2017 through 03/26/2018 her serum bicarbonate ranged from 31-38. I will repeat the blood gas now to reassess for chronic hypercarbic respiratory failure. Regarding additional contributing factors, patient has a positive D-dimer and I will obtain a CT angiogram of the chest to assess for pulmonary embolism as well as any additional etiologies for her continued dyspnea on exertion. She has no change in her sputum and no infectious complaints. Patient does have a white blood cell count of 19.4 but she has been on high-dose steroids. I agree with no antibiotics at this time. I will check a BNP in the morning. I will check a TSH and free T4 in the morning. If she is no better in the morning will consider an echocardiogram to assess LV function, RV function and valvular function. will follow with you History of Present Illness History of Present Illness Consult date: 02/04/22 Chief complaint: Acute on chronic respiratory failure,copd exacerba Narrative: 02/04/2022: This is a new pulmonary consult for COPD exacerbation 81-year-old with a history of GERD, vertigo, tobacco use (33 PY, current smoking 0.5 PPD) COPD for 5 years on home O2 3 L 24-7, CT of the abdomen and pelvis on 02/01/2022 with [id number] panlobular emphysema. I have no PFTs. Patient is on prednisone 10 mg a day for years as well as triple inhaler with trelegy 100 At baseline the patient states she is short of breath walking across the room on a good day. One year ago she said she could walk half a block. Patient smokes 1/2 pack a cigarettes a day from age 14 to this current admission. Patient was exposed to secondhand smoke from her father and from her from [id number]. The patient denies vaping, illicit drug use, sandblasting, welding, asbestos were, professional painting or steel industrial millwright. Patient was found at home on the couch on 02/01 lying in stool and urine and brought to the hospital for back pain and abdominal pain. The patient was febrile, had wheezing, had a white blood cell count of 12.7, creatinine of 0.9, had a blood gas of 7.38/54/214 on 3 L NC, had a chest x-ray with no active disease, procalcitonin was 0.3. patient was admitted for COPD exacerbation and treated with IV Solu-Medrol, bronchodilators. On 02/03 the patient had increased work of breathing and her steroids were increased. On 02/04 this morning she had increased work of breathing and she was given a stat albuterol and I was consulted. 02/04 Today the patient tells me she is breathing the same as when she arrived. She denies fever, chills, rigors. She states that her cough and phl
--- NOTE | 2022-02-04 14:04 | PCRCNOTE ---
Window of time for administration has passed. See next scheduled administration.
--- NOTE | 2022-02-04 14:42 | PM.IMPN ---
Progress Note: A&P Assessment and Plan (1) Acute exacerbation of chronic obstructive pulmonary disease (COPD): Code(s): J44.1 - Chronic obstructive pulmonary disease with (acute) exacerbation Status: Acute (2) Acute on chronic respiratory failure with hypoxia and hypercapnia: Code(s): J96.21 - Acute and chronic respiratory failure with hypoxia; J96.22 - Acute and chronic respiratory failure with hypercapnia Status: Acute (3) Chronic respiratory failure with hypoxia, on home oxygen therapy: Code(s): J96.11 - Chronic respiratory failure with hypoxia; Z99.81 - Dependence on supplemental oxygen Status: Acute (4) GERD (gastroesophageal reflux disease): Code(s): K21.9 - Gastro-esophageal reflux disease without esophagitis Status: Acute (5) Burst fracture of lumbar vertebra: Code(s): S32.001A - Stable burst fracture of unspecified lumbar vertebra, initial encounter for closed fracture Status: Acute (6) Compression fracture of lumbar vertebrae, non-traumatic: Code(s): M48.56XA - Collapsed vertebra, not elsewhere classified, lumbar region, initial encounter for fracture Status: Acute (7) Vertigo: Code(s): R42 - Dizziness and giddiness Status: Acute (8) Elevated d-dimer: Code(s): R79.89 - Other specified abnormal findings of blood chemistry Status: Acute Plan admit to med surg steroids duonebs PT/OT pain control TSLO brace when out of bed supportive care per pts request hospice discussion tomorrow w family 02/03/22 TSLO brace ordered will be delivered tomorrow cont current care dc planning to SNF c/s mental health coordinator dc in 24-48hrs 02/04/22 pt tolerating brace was able to transfer to chair w assistance this am resp fxn not improved as anticipated w tx c/s pulm Dr Fragoso dc to SNF when resp status improved CTA pending to r/o PE am labs Time Spent With Patient Time with patient: Greater than 35 minutes Subjective Date/time seen: 02/04/22 14:42 pt w increased work of breathing this am, duoneb given and pt placed in [place] brace and assisted to chair. Pt reports dizziness w rolling in bed and sitting up. Asks for her home medication. She is seen again later in the day breathing status improving and tolerating food her grandson has brought in for her to eat. Review of Systems Review of Systems: All systems reviewed & are unremarkable except as noted in HPI and below Exam Narrative: GEN: AAOx3, cooperative HEENT: NCAT, MMM, EOMI Neck: no JVD Heart: S1S2 RRR Lungs: diffuse exp wheezing insp final crackles at bases, use of abd muscles and pursed lip breathing on first exam Abd: soft, NT, ND, bowel sounds normoactive Ext: moves all, no cyanosis, no clubbing, no edema Neuro: moves all extremities equally, unsteady gait, no focal deficits Psych: mood and affect congruent Objective Data Vital Signs Vital Signs: Vital Signs - 24 hr 02/03/22 15:39 02/03/22 15:49 02/03/22 18:29 Temperature Pulse Rate 90 90 96 Respiratory Rate 16 16 16 Blood Pressure Pulse Oximetry Oxygen Delivery Oxygen Flow Rate 02/03/22 18:35 02/03/22 18:55 02/03/22 16:00 Temperature Pulse Rate 97 91 96 Respiratory Rate 16 14 Blood Pressure Pulse Oximetry 95 Oxygen Delivery Nasal Cannula Oxygen Flow Rate 3 02/03/22 22:00 02/03/22 23:55 02/04/22 03:14 Temperature 98.5 F Pulse Rate 96 87 81 Respiratory Rate 20 14 15 Blood Pressure 135/66 Pulse Oximetry 96 Oxygen Delivery Oxygen Flow Rate 02/04/22 04:00 02/04/22 06:00 02/04/22 08:07 Temperature 97.6 F Pulse Rate 78 92 91 Respiratory Rate 20 16 Blood Pressure 147/70 H Pulse Oximetry 91 Oxygen Delivery Oxygen Flow Rate 02/04/22 08:11 02/04/22 08:21 02/04/22 08:59 Temperature Pulse Rate 91 93 98 Respiratory Rate 16 16 20 Blood Pressure Pulse Oximetry 95 Oxygen Delivery Nasal Cannula Oxygen Flow
[2022-02-04 16:06] LABS: Alveolar/Arterial O2 Gradient 48.4 mmHg; Base Excess ABG 6.3 mEq/l (+/-2.0); Fractional Inspired Oxygen 32 %; HCO3 ABG 32.4 mEq/l (22.0-26.0); Oxygen Content ABG 15.9 %vol (16.0-22.0); Oxygen Saturation ABG 98.2 % (95.0-100.0); Oxyhemoglobin 97.2 % THb (90.0-100.0); PCO2 ABG 53.7 mmHg (35.0-45.0); PO2 ABG 116.9 mmHg (80.0-100.0); PO2 FiO2 Ratio Arterial Blood 3.65 %; Total Hemoglobin 11.5 g/dL (12.0-18.0); pH ABG 7.398 (7.350-7.450)
[2022-02-04 16:08] LABS: Device NASAL CANNULA; Site Drawn RIGHT BRACHIAL
[2022-02-05] VITALS (16 sets, daily range): BP systolic 147–164; BP diastolic 70–131; PULSE 77–97; RESP 14–21; TEMP 35.8–36.6; O2SAT 90–98
[2022-02-05 04:07] LABS: Alveolar/Arterial O2 Gradient 54.9 mmHg; Base Excess ABG 7.8 mEq/l (+/-2.0); Fractional Inspired Oxygen 32 %; HCO3 ABG 33.8 mEq/l (22.0-26.0); Oxygen Content ABG 14.8 %vol (16.0-22.0); Oxygen Saturation ABG 97.9 % (95.0-100.0); Oxyhemoglobin 96.6 % THb (90.0-100.0); PCO2 ABG 55.1 mmHg (35.0-45.0); PO2 ABG 108.8 mmHg (80.0-100.0); Total Hemoglobin 10.8 g/dL (12.0-18.0); pH ABG 7.406 (7.350-7.450)
[2022-02-05 04:08] LABS: Device NON-INVASIVE VENT; Modified Allen's Test Pass; Site Drawn RIGHT RADIAL
[2022-02-05 04:11] LABS: Non-Invasive Expiratory Pressure 5 CMH2O; Non-Invasive Vent Rate 20 /MIN
[2022-02-05] MEDS: ALBUTEROL SULFATE NEB 2.5 MG/3 ML INH INHALATION ×5 (04:59→20:50)
[2022-02-05] MEDS: IPRATROPIUM BR 0.02% INH SOLN 0.5 MG/2.5 ML VIAL INHALATION ×5 (04:59→20:50)
[2022-02-05 06:41] LABS: Basophils Percent Auto 0.2 % (0.2-1.2); Hematocrit 34.1 % (37.0-47.0); Hemoglobin 10.2 g/dL (12.0-15.0); Immature Granulocyte Absolute 0.07 K/mm3 (0.00-0.031); Immature Granulocyte Percent A 0.6 % (0-0.5); Lymphocytes Absolute Auto 0.61 K/mm3 (0.9-3.2); Mean Corpuscular HGB Conc 29.9 g/dl (32-36); Mean Corpuscular Hemoglobin 29.7 pg (26-34); Mean Corpuscular Volume 99.1 fl (80-100); Mean Platelet Volume 9.2 fl (7.4-10.4); Monocytes Absolute Auto 0.6 K/mm3 (0.1-0.6); Monocytes Percent Auto 4.5 % (2.6-8.5); Neutrophils Percent Auto 89.7 % (45.5-73.1); Platelet Count Result 274 k/mm3 (150-375); Red Blood Count 3.44 M/mm3 (4.2-5.4); White Blood Count 12.3 K/mm3 (4.5-10.0)
--- NOTE | 2022-02-05 06:56 | ECHO_ITS ---
Patient Info Name: Erlinda Pak Age: 81 years : 1940 Gender: Female Ht: 62 in Wt: 149 lbs BSA: 1.74 m2 HR: 94 bpm BP: 147 / 80 mmHg Technical Quality: Poor Exam Date: 02/05/2022 2:06 PM Exam Location: [facility] Patient Status: Inpatient Admit Date: 02/03/2022 Staff Ordering Physician: Smooth Fragoso MD Bilingual Research Interviewer: Christiano Rincon RDCS Attending Provider: Rhoda Singletary MD Referring Physician: Richmond FOSTER; Exam Type: CA echo doppler color flow Study Info Indications - COPD Complete two-dimensional, color flow and Doppler transthoracic echocardiogram is performed. Summary 1. Complete two-dimensional, color flow and Doppler transthoracic echocardiogram is performed. 2. Technically suboptimal study due to poor sonographic images. 3. Left ventricular chamber dimension is normal. 4. Left ventricular systolic function is normal, estimated at 60-65%. 5. The left ventricular diastolic function is grade I diastolic dysfunction. 6. Right ventricular systolic function is reduced based on abnormal TAPSE 1.3 cm. 7. The aortic valve is not well visualized. Cannot determine number of aortic valve leaflets. 8. There is mild aortic valve sclerosis. 9. The mitral valve has mildly calcified annulus. Left Ventricle Technically suboptimal study due to poor sonographic images. Left ventricular chamber dimension is normal. Left ventricular systolic function is normal, estimated at 60-65%. The left ventricular diastolic function is grade I diastolic dysfunction. Tissue doppler E/e' is not calculated. Right Ventricle Right ventricular systolic function is reduced based on abnormal TAPSE 1.3 cm. Right ventricular chamber dimension is not well visualized. Left Atria Left atrial chamber dimension is normal. Right Atria Right atrial chamber dimension is normal. Aortic Valve The aortic valve is not well visualized. Cannot determine number of aortic valve leaflets. There is mild aortic valve sclerosis. There is no aortic valve stenosis. There is no aortic valve regurgitation. Pulmonic Valve There is no pulmonic regurgitation. Mitral Valve The mitral valve has mildly calcified annulus. There is no mitral valve stenosis. There is no mitral valve regurgitation. Tricuspid Valve There is no tricuspid valve regurgitation. Pericardium/Pleural There is no pericardial effusion. Inferior Vena Cava Normal inferior vena cava with >50% collapse upon inspiration consistent with normal right atrial pressure, 5 mmHg. Aorta The aortic root size at the sinus of Valsalva is normal. Left Ventricular Outflow Tract Name Value Normal LVOT 2D LVOT Diameter 2.0 cm Tricuspid Valve Name Value Normal Estimated PAP/RSVP RA Pressure 5 mmHg <=5 Aortic Valve Name Value Normal ------
[2022-02-05 07:00] LABS: Anion Gap 5 mmol/L (8-16); Blood Urea Nitrogen 36 mg/dL (7-17); Calcium 8.6 mg/dL (8.4-10.2); Carbon Dioxide 36 mmol/L (22-30); Chloride 101 mmol/L (98-107); Estimated CRCL calculation 35 ml/min; Estimated Glomerular Filt Rate 53; Glucose 113 mg/dL (65-110); Potassium 3.5 mmol/L (3.4-5.0); Sodium 142 mmol/L (137-145)
[2022-02-05 07:03] LABS: NT Pro B Type Natriuretic Pept 464 pg/mL (5-100)
[2022-02-05 07:06] LABS: Free T4 Free Thyroxine 1.39 ng/mL (0.78-2.19)
[2022-02-05 07:25] LABS: Thyroid Stimulating Hormone 0.253 uIU/mL (0.465-4.680)
--- NOTE | 2022-02-05 08:15 | PCOTNOTE ---
Attempted to see patient for OT, patient stated Oh no and shook her head back and forth. Patient reported not getting much sleep last night and having a bad day. Patient requested therapy try to see her later for OT if possible. Will continue OT per plan of care.
--- NOTE | 2022-02-05 08:18 | PM.PNPUL ---
Progress Note: A&P Assessment and Plan (1) Acute exacerbation of chronic obstructive pulmonary disease (COPD): Code(s): J44.1 - Chronic obstructive pulmonary disease with (acute) exacerbation Status: Acute Assessment and Plan: Patient with current tobacco use (33 PY, current smoking 0.5 PPD), COPD for 5 years on home O2 3 L 24-7, CT of the abdomen and pelvis on 02/01/2022 with [id number]-[id number]-lboojave panlobular emphysema. I have no PFTs. Patient is on prednisone 10 mg a day for years as well as triple inhaler with trelegy 100. At baseline the patient states she is short of breath walking across the room on a good day. One year ago she said she could walk half a block. the patient presented with wheezing and I agree with treatment for COPD exacerbation. The patient has been on Solu-Medrol since 02/01 at 10:00 p.m. and currently is on 40 mg q.day. at this point she feels she is no better than when she arrived to the hospital and I would discontinue her inhaled trilogy and place her on albuterol 2.5 mg q.4 hours nebulized and ipratropium 0.5 mg q.4 hours nebulized. I will continue her Solu-Medrol at 40 mg a day. The patient had a blood gas on admission 7.38/58/214 on 3 L nasal cannula. Patient has a serum bicarbonate of 33 today and this was 34 on admission. Of note from 07/15/2017 through 03/26/2018 her serum bicarbonate ranged from 31-38. I will repeat the blood gas now to reassess for chronic hypercarbic respiratory failure. Regarding additional contributing factors, patient has a positive D-dimer and I will obtain a CT angiogram of the chest to assess for pulmonary embolism as well as any additional etiologies for her continued dyspnea on exertion. She has no change in her sputum and no infectious complaints. Patient does have a white blood cell count of 19.4 but she has been on high-dose steroids. I agree with no antibiotics at this time. I will check a BNP in the morning. I will check a TSH and free T4 in the morning. If she is no better in the morning will consider an echocardiogram to assess LV function, RV function and valvular function. ABG later in the day on 3 L nasal cannula pH of 7.40/54/117. Patient with chronic hypercarbic respiratory failure from COPD and attempted to initiate noninvasive ventilation. She did not tolerate BiPAP pressures and she was placed on a VATS mode with a rate of 20, tidal volume 500, EPAP 5, minimal inspiratory pressure 6, maximal inspiratory pressure 25 and 30 52% FiO2. CT angiogram later in the day demonstrated no pulmonary embolism. Severe apical predominant panlobular emphysema. No focal infiltrates. 02/05 Patient did not tolerate the noninvasive ventilator with the AVAPS mode. She said that she cried through the night and could not sleep because of the pain, discomfort, anxiety and uncomfortable breathing pattern. I asked if I could try to adjust the mask and the settings today and she started to cry again and would not let me put the mask on her face. The patient is intolerant to noninvasive ventilation and I have DC BiPAP orders. ABG prior to removal of the mass this morning was 7.40/55/109. Overnight oximetry on the machine demonstrated a basal saturation 99%, lowest saturation 93%, time with saturation less than or equal to 88 minutes was 0.0 minutes. Currently the patient states she is breathing back at her normal. She denies cough, phlegm, hemoptysis. Saturations on 3 L nasal cannula is 100%. Will order an echocardiogram today to assess LV function, RV function, pulmonary pressures and valve function. I will change bread methylprednisolone to oral prednisone at 40 mg PO. continue albuterol and ipratropium nebulizers q.4 hours. will follow with you Subjective Date/time seen: 02/05/22 08:18 Interval history: 02/04/2022:? This is a new pulmonary consult for COPD exacerbation 81-year-old with a history of GERD, vertigo, tobacco use (33 PY, current smo
[2022-02-05] MEDS: PANTOPRAZOLE 40 MG TABLET PO (09:02)
[2022-02-05] MEDS: predniSONE 20 MG TABLET 40 MG PO (09:02)
[2022-02-05] MEDS: MECLIZINE HCL 25 MG TABLET PO (09:13)
--- NOTE | 2022-02-05 13:50 | PCOTNOTE ---
Attempted to see patient second attempt this PM, patient having US performed in room. Will continue OT per plan of care.
--- NOTE | 2022-02-05 18:21 | PM.IMPN ---
Progress Note: A&P Assessment and Plan (1) Acute exacerbation of chronic obstructive pulmonary disease (COPD): Code(s): J44.1 - Chronic obstructive pulmonary disease with (acute) exacerbation Status: Acute (2) Acute on chronic respiratory failure with hypoxia and hypercapnia: Code(s): J96.21 - Acute and chronic respiratory failure with hypoxia; J96.22 - Acute and chronic respiratory failure with hypercapnia Status: Acute (3) Chronic respiratory failure with hypoxia, on home oxygen therapy: Code(s): J96.11 - Chronic respiratory failure with hypoxia; Z99.81 - Dependence on supplemental oxygen Status: Acute (4) GERD (gastroesophageal reflux disease): Code(s): K21.9 - Gastro-esophageal reflux disease without esophagitis Status: Acute (5) Burst fracture of lumbar vertebra: Code(s): S32.001A - Stable burst fracture of unspecified lumbar vertebra, initial encounter for closed fracture Status: Acute (6) Compression fracture of lumbar vertebrae, non-traumatic: Code(s): M48.56XA - Collapsed vertebra, not elsewhere classified, lumbar region, initial encounter for fracture Status: Acute (7) Vertigo: Code(s): R42 - Dizziness and giddiness Status: Acute (8) Elevated d-dimer: Code(s): R79.89 - Other specified abnormal findings of blood chemistry Status: Acute Plan admit to med surg steroids duonebs PT/OT pain control TSLO brace when out of bed supportive care per pts request hospice discussion tomorrow w family 02/03/22 TSLO brace ordered will be delivered tomorrow cont current care dc planning to SNF c/s communication center coordinator dc in 24-48hrs 02/04/22 pt tolerating brace was able to transfer to chair w assistance this am resp fxn not improved as anticipated w tx c/s pulm Dr Fragoso dc to SNF when resp status improved CTA pending to r/o PE am labs 02/05/22 improving echo pending CTA neg for PE possible dc w O2 defer to pulm final decision pt w severe COPD as seen on imaging TSLO brace for back pain associated w chronic vertebral fxs dc to SNF tomorrow anticipated pending pulm clearance Subjective Date/time seen: 02/05/22 18:21 pt doing ok breathing better, is hypercapeic but not able to tolerate positive pressure mask case reviewed w Dr Fragoso Review of Systems Review of Systems: All systems reviewed & are unremarkable except as noted in HPI and below Exam Narrative: GEN: AAOx3, cooperative HEENT: NCAT, MMM, EOMI Neck: no JVD Heart: S1S2 RRR Lungs: faint crackles on exam no wheezing Abd: soft, NT, ND, bowel sounds normoactive Ext: moves all, no cyanosis, no clubbing, no edema Neuro: moves all extremities equally, unsteady gait, no focal deficits Psych: mood and affect congruent Objective Data Vital Signs Vital Signs: Vital Signs - 24 hr 02/04/22 20:19 02/04/22 20:33 02/04/22 20:34 Temperature Pulse Rate 96 92 92 Respiratory Rate 18 16 18 Blood Pressure Pulse Oximetry 96 Oxygen Delivery Oxygen Flow Rate 3 Fraction of Inspired Oxygen 02/04/22 22:00 02/04/22 23:49 02/04/22 23:51 Temperature 98.1 F Pulse Rate 96 94 Respiratory Rate 14 23 H Blood Pressure 142/64 H Pulse Oximetry 97 96 96 Oxygen Delivery BiPAP Oxygen Flow Rate Fraction of Inspired Oxygen 32 02/05/22 02:16 02/05/22 04:21 02/05/22 04:59 Temperature Pulse Rate 94 94 88 Respiratory Rate 21 H 20 16 Blood Pressure Pulse Oximetry 96 97 Oxygen Delivery Oxygen Flow Rate Fraction of Inspired Oxygen 02/05/22 05:12 02/05/22 06:00 02/05/22 08:02 Temperature 97.9 F Pulse Rate 92 77 Respiratory Rate 16 14 Blood Pressure 147/80 H Pulse Oximetry 98 93 Oxygen Delivery Nasal Cannula Oxygen Flow Rate 3 Fraction of Inspired Oxygen 02/05/22 08:02 02/05/22 08:13 02/05/22 08:00 Temperature Pulse Rate 84 88 88 Respiratory Rate 16 16 16 Blood Pressure
[2022-02-06] VITALS (9 sets, daily range): BP systolic 117–166; BP diastolic 66–79; PULSE 84–93; RESP 14–18; TEMP 35.5–35.9; O2SAT 93–99
--- NOTE | 2022-02-06 05:10 | PCRCNOTE ---
0000 neb tx was omitted due to apnea study
[2022-02-06] MEDS: ALBUTEROL SULFATE NEB 2.5 MG/3 ML INH INHALATION ×3 (05:12→12:47)
[2022-02-06] MEDS: IPRATROPIUM BR 0.02% INH SOLN 0.5 MG/2.5 ML VIAL INHALATION ×3 (05:13→12:47)
[2022-02-06 06:25] LABS: Basophils Percent Auto 0.1 % (0.2-1.2); Eosinophils Percent Auto 0.1 % (0-4.4); Hematocrit 32.4 % (37.0-47.0); Hemoglobin 10.2 g/dL (12.0-15.0); Immature Granulocyte Absolute 0.07 K/mm3 (0.00-0.031); Immature Granulocyte Percent A 0.6 % (0-0.5); Lymphocytes Absolute Auto 1.16 K/mm3 (0.9-3.2); Lymphocytes Percent Auto 10.2 % (18.3-44.2); Mean Corpuscular HGB Conc 31.5 g/dl (32-36); Mean Corpuscular Hemoglobin 29.7 pg (26-34); Mean Corpuscular Volume 94.2 fl (80-100); Mean Platelet Volume 9.2 fl (7.4-10.4); Monocytes Absolute Auto 0.5 K/mm3 (0.1-0.6); Monocytes Percent Auto 4.5 % (2.6-8.5); Neutrophils Absolute Auto 9.6 K/mm3 (1.3-6.7); Neutrophils Percent Auto 84.5 % (45.5-73.1); Platelet Count Result 261 k/mm3 (150-375); Red Blood Count 3.44 M/mm3 (4.2-5.4); Red Cell Distribution Width 13.8 % (11.5-14.5); White Blood Count 11.4 K/mm3 (4.5-10.0)
[2022-02-06 06:36] LABS: Anion Gap 4 mmol/L (8-16); Blood Urea Nitrogen 31 mg/dL (7-17); Calcium 8.3 mg/dL (8.4-10.2); Carbon Dioxide 37 mmol/L (22-30); Chloride 99 mmol/L (98-107); Estimated CRCL calculation 43 ml/min; Estimated Glomerular Filt Rate > 60; Glucose 92 mg/dL (65-110); Magnesium 2.2 mg/dL (1.6-2.3); Potassium 3.3 mmol/L (3.4-5.0); Sodium 140 mmol/L (137-145)
[2022-02-06] MEDS: PANTOPRAZOLE 40 MG TABLET PO (08:30)
[2022-02-06] MEDS: predniSONE 20 MG TABLET 40 MG PO (08:30)
[2022-02-06] MEDS: POTASSIUM CHLORIDE 20 MEQ PACKET (FOR LIQUID) 40 MEQ PO (08:30)
--- NOTE | 2022-02-06 09:59 | PM.PNPUL ---
Progress Note: A&P Assessment and Plan (1) Acute exacerbation of chronic obstructive pulmonary disease (COPD): Code(s): J44.1 - Chronic obstructive pulmonary disease with (acute) exacerbation Status: Acute Assessment and Plan: Patient with current tobacco use (33 PY, current smoking 0.5 PPD), COPD for 5 years on home O2 3 L 24-7, CT of the abdomen and pelvis on 02/01/2022 with pwoy-cb-zdcapjvw panlobular emphysema. I have no PFTs. Patient is on prednisone 10 mg a day for years as well as triple inhaler with trelegy 100. At baseline the patient states she is short of breath walking across the room on a good day. One year ago she said she could walk half a block. the patient presented with wheezing and I agree with treatment for COPD exacerbation. The patient has been on Solu-Medrol since 02/01 at 10:00 p.m. and currently is on 40 mg q.day. at this point she feels she is no better than when she arrived to the hospital and I would discontinue her inhaled trilogy and place her on albuterol 2.5 mg q.4 hours nebulized and ipratropium 0.5 mg q.4 hours nebulized. I will continue her Solu-Medrol at 40 mg a day. The patient had a blood gas on admission 7.38/58/214 on 3 L nasal cannula. Patient has a serum bicarbonate of 33 today and this was 34 on admission. Of note from 07/15/2017 through 03/26/2018 her serum bicarbonate ranged from 31-38. I will repeat the blood gas now to reassess for chronic hypercarbic respiratory failure. Regarding additional contributing factors, patient has a positive D-dimer and I will obtain a CT angiogram of the chest to assess for pulmonary embolism as well as any additional etiologies for her continued dyspnea on exertion. She has no change in her sputum and no infectious complaints. Patient does have a white blood cell count of 19.4 but she has been on high-dose steroids. I agree with no antibiotics at this time. I will check a BNP in the morning. I will check a TSH and free T4 in the morning. If she is no better in the morning will consider an echocardiogram to assess LV function, RV function and valvular function. ABG later in the day on 3 L nasal cannula pH of 7.40/54/117. Patient with chronic hypercarbic respiratory failure from COPD and attempted to initiate noninvasive ventilation. She did not tolerate BiPAP pressures and she was placed on a VATS mode with a rate of 20, tidal volume 500, EPAP 5, minimal inspiratory pressure 6, maximal inspiratory pressure 25 and 30 52% FiO2. CT angiogram later in the day demonstrated no pulmonary embolism. Severe apical predominant panlobular emphysema. No focal infiltrates. 02/05 Patient did not tolerate the noninvasive ventilator with the AVAPS mode. She said that she cried through the night and could not sleep because of the pain, discomfort, anxiety and uncomfortable breathing pattern. I asked if I could try to adjust the mask and the settings today and she started to cry again and would not let me put the mask on her face. The patient is intolerant to noninvasive ventilation and I have DC BiPAP orders. ABG prior to removal of the mass this morning was 7.40/55/109. Overnight oximetry on the machine demonstrated a basal saturation 99%, lowest saturation 93%, time with saturation less than or equal to 88 minutes was 0.0 minutes. Currently the patient states she is breathing back at her normal. She denies cough, phlegm, hemoptysis. Saturations on 3 L nasal cannula is 100%. Will order an echocardiogram today to assess LV function, RV function, pulmonary pressures and valve function. I will change bread methylprednisolone to oral prednisone at 40 mg PO. continue albuterol and ipratropium nebulizers q.4 hours. Echo with LVEF 60-65%, grade 1 diastolic dysfunction, decreased right ventricular function with no size measured, rate a tree is normal size no tricuspid regurg. 02/06 Patient was able to get some sleep on nasal cannula oxygen. She s
--- NOTE | 2022-02-06 13:31 | PM.DS ---
DS: Admitting Diagnosis Discharge Date 02/06/2022 Admitting Diagnosis shortness of breath DS: Discharge Diagnosis Discharge Diagnosis (1) Acute exacerbation of chronic obstructive pulmonary disease (COPD): Code(s): J44.1 - Chronic obstructive pulmonary disease with (acute) exacerbation Status: Acute (2) Acute on chronic respiratory failure with hypoxia and hypercapnia: Code(s): J96.21 - Acute and chronic respiratory failure with hypoxia; J96.22 - Acute and chronic respiratory failure with hypercapnia Status: Acute (3) Chronic respiratory failure with hypoxia, on home oxygen therapy: Code(s): J96.11 - Chronic respiratory failure with hypoxia; Z99.81 - Dependence on supplemental oxygen Status: Acute (4) GERD (gastroesophageal reflux disease): Code(s): K21.9 - Gastro-esophageal reflux disease without esophagitis Status: Acute (5) Burst fracture of lumbar vertebra: Code(s): S32.001A - Stable burst fracture of unspecified lumbar vertebra, initial encounter for closed fracture Status: Acute (6) Compression fracture of lumbar vertebrae, non-traumatic: Code(s): M48.56XA - Collapsed vertebra, not elsewhere classified, lumbar region, initial encounter for fracture Status: Acute (7) Vertigo: Code(s): R42 - Dizziness and giddiness Status: Acute (8) Elevated d-dimer: Code(s): R79.89 - Other specified abnormal findings of blood chemistry Status: Acute Plan admit to med surg steroids duonebs PT/OT pain control TSLO brace when out of bed supportive care per pts request hospice discussion tomorrow w family 02/03/22 TSLO brace ordered will be delivered tomorrow cont current care dc planning to SNF c/s billing coordinator dc in 24-48hrs 02/04/22 pt tolerating brace was able to transfer to chair w assistance this am resp fxn not improved as anticipated w tx c/s pulm Dr Fragoso dc to SNF when resp status improved CTA pending to r/o PE am labs 02/05/22 improving echo pending CTA neg for PE possible dc w O2 defer to pulm final decision pt w severe COPD as seen on imaging TSLO brace for back pain associated w chronic vertebral fxs dc to SNF tomorrow anticipated pending pulm clearance DS: Summary Hospital Course Reason for hospitalization: Chief Complaint: ?shortness of breath Narrative: ?this is an 81-year-old female with past medical history significant for COPD, chronic respiratory failure with hypoxia on supplemental oxygen, gastroesophageal reflux disease, patient was brought to the emergency room due to patient being unable to care for herself son found her covered in feces and urine and in distress patient complained of? abdominal pain however preliminary workup? was significant for CT of abdomen and pelvis was negative for any findings intra-abdominal but did show emphysema and an ABG showed a pCO2 of 53 patient is unable to give much history she is confused Hospital Course: Patient presented with shortness of breath, was found to have exacerbation of COPD, patient with long history of smoking and currenly smoking, chronic respiratory failure on home oxygen 3l NC, patient was seen by Dr. Fragoso treated with Solu-Mederol bronchodilators, patient had elevated D-dimer and had CTA of chest which was negative for PE to further evaluate patient had cardiac echo found to have EF of 60-65 and grade I diastolic dysfunction, Dr. Fragoso placed her on BIPAP but she was not able to tolerate and was crying most of the night and was not able to sleep, last night patient was placed an 5L NC and patient slept, will discharge to [place] with instruction to continue 3L during day and 5L at night. Time Spent with Patient Time attestation: Total time spent providing and/or coordinating discharge services: Exam Narrative: GEN: AAOx3, cooperative HEENT: NCAT, MMM, EOMI Heart: S1S2 RRR Lungs: faint crackles on exam no wheezing Abd: soft, NT,
[2022-02-06 14:11] LABS: EDCOVIDSCREEN Negative (Negative)
== END 2022-02-06 16:13 | DRG 191 ==
LOC: ANHED 23:59 → ANH3MEDSUR 02-02 00:28
PROVIDERS: Emergency Medicine; Hospitalist; Internal Medicine Pulmonary Disease; Physician Assistant; Admitting Provider Internal Medicine; Emergency Provider General Practice; PCP Family Medicine; Visit Provider Family Medicine
DX: J43.1 Panlobular emphysema (principal); J96.11 Chronic respiratory failure with hypoxia; J96.12 Chronic respiratory failure with hypercapnia; F17.210 Nicotine dependence, cigarettes, uncomplicated; K21.9 Gastro-esophageal reflux disease without esophagitis; M48.56XD Collapsed vertebra, not elsewhere classified, lumbar region, subsequent encounter for fracture with routine healing; R10.30 Lower abdominal pain, unspecified; R79.1 Abnormal coagulation profile; Z99.81 Dependence on supplemental oxygen; Z20.822 Contact with and (suspected) exposure to COVID-19; Z90.49 Acquired absence of other specified parts of digestive tract; Z91.199 Patient's noncompliance with other medical treatment and regimen due to unspecified reason
CPT/HCPCS: 36415; 36600; 51701; 71045; 71275; 74177; 80048; 80053; 81001; 82375; 82550; 82805; 83050; 83605; 83735; 83880; 84100; 84145; 84439; 84443; 84484; 85025; 85380; 85652; 86140; 87040; 87426; 93005; 93306; 94002; 94640; 94762; 96361; 96365; 96376; 97110; 97116; 97161; 97165; 97530; 97535; 99285; A9270; C9803; G0378; J0131; J2930; J7030; J7512; Q9967

== ENCOUNTER 2022-04-01 23:32 | Observation (INO) | payer MEDICARE, MEDICAID, SELFPAY ==
--- NOTE | ~2022-04-01 | XR_ITS ---
EXAMINATION: XR abdomen obstructive series DATE: 04/03/2022 07:55 INDICATION: Partial colonic obstruction TECHNIQUE: Upright and supine views of the abdomen were obtained. COMPARISON: CT from yesterday FINDINGS: There is unchanged distention of the ascending and transverse colon continuing to the level of the splenic flexure beyond which the colon is normal in caliber. No free intraperitoneal gas is i dentified. The lung bases are clear. There is mild osteoarthritis of the hips. Phleboliths are noted in the pelvis. IMPRESSION: 1. Unchanged distention of the ascending and transverse colon to the level of the splenic flexure, shannan pinto related to splenic flexure mass. Reviewed, dictated and finalized at location A. RAL DIRECTOR/EMBALMER/OWNER IMPRESSION: 1. Unchanged distention of the ascending and transverse colon to the level of t he splenic flexure, likely related to splenic flexure mass.
--- NOTE | ~2022-04-01 | XR_ITS ---
EXAMINATION: XR chest 1V portable INDICATION: Shortness of breath and cough TECHNIQUE: Portable AP chest at 0039 hours COMPARISON: 02/01/2022 FINDINGS: There is scarring of the lung apices. No pleural effusion or pneumothorax. The lungs are fr ee of focal airspace opacities. There is mild atelectasis of the lung bases. The cardiomediastinal si lhouette is normal. IMPRESSION: 1. No acute cardiopulmonary abnormality. Reviewed, dictated and finalized at location A. TH INFORMATION PROVIDER
--- NOTE | ~2022-04-01 | CT_ITS ---
EXAMINATION: CT abdomen pelvis wo con DATE: 04/02/2022 02:39 INDICATION: Generalized abdominal pain TECHNIQUE: Computed tomography (CT) of the abdomen and pelvis was performed without intravenous contr ast. Automated exposure control and iterative reconstruction technique were employed. Exam dose: 563 .28 mGy-cm total exam DLP. COMPARISON: 02/01/2022 CT abdomen pelvis FINDINGS: Left fat-containing foramen of Bochdalek hernia. Emphysematous changes are noted in the lower lung zones. There is prominent patchy consolidation in the posterior right lung base, right lower lobe, with air bronchograms, which may be due to aspiration pneumonitis or pneumonia. Normal heart size. No pericardial or pleural effusion. Moderate sized sliding hiatal hernia. Occasional hepatic, splenic calcified granulomas in left lower lobe calcified pulmonary granuloma con sistent with old granulomatous disease. Approximately 9 mm anterior hepatic dome cyst. The gallbladder is distended but no apparent gallbladder wall thickening or any pericholecystic fluid or fat stranding is noted. No bile duct or pancreatic duct dilatation. Normal splenic size. No pancreatic mass lesion or calcification. Normal morphology of the adrenal glands. No renal mass lesion is evident on this limited noncontrast examination. No urinary tract calculus or hydroureteronephrosis. The urinary bladder is evacuated and not optimally evaluated. Retroverted atr ophic uterus. Adnexal areas are unremarkable. There is atherosclerotic calcification of the abdominal aorta and prominent calcification at the orig ins of the renal arteries in addition to calcification origins of celiac and superior mesenteric subhash bhavesh. No abdominal aortic aneurysm. No intraperitoneal or retroperitoneal or pelvic adenopathy or asc ites is noted. There is prominent soft tissue mass and luminal narrowing of the splenic flexure of the colon with so me patchy pericolic soft tissue thickening in this region. This is likely an obstructing colon carcin robert, with dilatation and prominent gaseous distention of some liquid stool in the colon proximal to t his site. No perforation or free air is evident. There are multiple fracture deformities of the lower thoracic and lumbar spine including new T11 comp ression fracture since 02/01/2022. T12, L1, L3, L4-L5 fracture deformities appear stable since 02/02/20 22. 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 Murphy telephoned the emergency room physician Dr. 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 Reviewed, dictated and finalized at Location A. Reviewed, dictated and finalized at location B. 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 Murphy telephoned the emergency room physician Dr. Newman with the finding of s uspected left splenic flexure obstructing colonic adenocarcinoma on 04/02/2022 a t 0825 hours.
[2022-04-01 23:33] VITALS: BP 109/73; PULSE 110; RESP 18; TEMP 36.4; O2SAT 100
[2022-04-02] VITALS (25 sets, daily range): BP systolic 104–136; BP diastolic 59–92; PULSE 100–114; RESP 16–25; TEMP 36.1; O2SAT 96–100; BMI 25.2
--- NOTE | 2022-04-02 00:01 | ECG_ITS ---
Measurements Intervals [place] Rate: 109 P: 80 WI: 110 QRS: 61 QRSD: 90 T: 77 QT: 343 QTc: 462 Interpretive Statements SINUS TACHYCARDIA WITH SHORT WI INTERVAL NONSPECIFIC ST AND T WAVE ABNORMALITY COMPARED TO ECG 02/01/2022 17:52:48 SINUS TACHYCARDIA NOW PRESENT Electronically Signed On 04-02-2022 15:27:11 BINDERY SUPERVISOR by Aldo Bautista M.D.
[2022-04-02 00:04] LABS: Hematocrit 48.2 % (37.0-47.0); Hemoglobin 14.4 g/dL (12.0-15.0); Mean Corpuscular HGB Conc 29.9 g/dl (32-36); Mean Corpuscular Volume 97.2 fl (80-100); Mean Platelet Volume 9.7 fl (7.4-10.4); Platelet Count Result 428 k/mm3 (150-375); Red Blood Count 4.96 M/mm3 (4.2-5.4); Red Cell Distribution Width 13.8 % (11.5-14.5); White Blood Count 15.5 K/mm3 (4.5-10.0)
[2022-04-02 00:13] LABS: Alanine Aminotransferase 14 U/L (6-35); Albumin Level 3.9 g/dL (3.5-5.1); Alkaline Phosphatase 75 U/L (38-126); Anion Gap 15 mmol/L (8-16); Aspartate Amino Transferase 26 U/L (14-36); Bilirubin,Total 0.7 mg/dL (0.2-1.3); Blood Urea Nitrogen 89 mg/dL (7-17); Calcium 8.8 mg/dL (8.4-10.2); Carbon Dioxide 30 mmol/L (22-30); Chloride 105 mmol/L (98-107); Estimated CRCL calculation 16 ml/min; Estimated Glomerular Filt Rate 24; Glucose 143 mg/dL (65-110); Potassium 3.8 mmol/L (3.4-5.0); Sodium 150 mmol/L (137-145)
[2022-04-02 00:42] LABS: Band Neutrophils Percent 10 % (0-6); Lymphocytes Absolute Manual 0.93 K/mm3 (1.1-4.5); Monocytes Absolute Manual 0.46 K/mm3 (0.1-0.90); Monocytes Percent Manual 3 % (3-9); Neutrophils Percent Manual 81 % (46-73); Total Cells Counted 100
[2022-04-02 00:43] LABS: Giant Platelets Present; Rouleaux 1+ (NORMAL)
[2022-04-02 00:44] LABS: Smudge Cells FEW
[2022-04-02 00:45] LABS: Schistocytes None Seen (NORMAL)
[2022-04-02 02:29] LABS: Add Urine Microscopic? YES; Appearance Urine Turbid (Clear); Bilirubin Urine 1+ (Negative); Blood Urine 1+ (Negative); Color Urine Brown (Yellow); Glucose Urine UA Negative (Negative); Ketones Urine Negative (Negative); Leukocyte Esterase Ur Negative LEU/UL (Negative); Nitrate Urine Negative (Negative); Protein Urine Trace mg/dL (Negative); Urobilinogen Urine 0.2 mg/dL (<2.0); pH Urine 5.5 (5.0-9.0)
[2022-04-02 02:33] LABS: WBC Urine 0-3 /hpf
[2022-04-02 03:05] LABS: Lipase 159 U/L (23-300); Magnesium 3.2 mg/dL (1.6-2.3)
[2022-04-02 03:05] LABS: Lactic Acid Reflex 1.6 mmol/L (0.7-2.0)
[2022-04-02 03:06] LABS: INR 1.4; Prothrombin Time 16.8 Seconds (11.1-14.7)
--- NOTE | 2022-04-02 03:06 | ED.GENADULT ---
HPI - General Adult General Chief complaint: Shortness of Breath/Dyspnea Stated complaint: LOW SAT, LETHARGIC, COUGH Time Seen by Provider: 04/02/22 01:55 History of Present Illness HPI narrative: Patient is a 81-year-old female presents the emergency department with chief complaint of cough and shortness of breath. Patient reports that she has been coughing and has had some congestion but states that currently her breathing feels much better patient states she also has history of chronic abdominal pain and has had discomfort in her abdomen. Patient states that she has not had a fever reports the cough has been nonproductive per the half-way the patient had low sats on her normal 3 L of oxygen and noticed that she may look a little bit more short of breath Related Data Home Medications Medication Instructions Recorded Confirmed albuterol sulfate 90 mcg/actuation 1 puff inhalation PRN PRN 02/02/22 02/02/22 aerosol inhaler Shortness Of Breath Or Wheezing fluticasone fur. 100 mcg-umeclid 1 inh inhalation DAILY 02/02/22 02/02/22 62.5 mcg-vilant 25 mcg inhalat.powder (Trelegy Ellipta) hydrocodone 5 mg-acetaminophen 325 1 tablet PO PRN PRN Pain 02/02/22 02/02/22 mg tablet meclizine 25 mg tablet 25 mg PO PRN vertigo 02/02/22 02/02/22 pantoprazole 40 mg tablet,delayed 40 mg PO DAILY 02/02/22 02/02/22 release prednisone 10 mg tablet 10 mg PO DAILY 02/02/22 02/02/22 Allergies Allergy/AdvReac Type Severity Reaction Status Date / Time No Known Allergies Allergy Verified 04/02/22 03:34 Review of Systems Review of Systems: A 10 system review of systems was completed on the patient and is negative except for what is stated in the HPI. Nursing and ancillary documentation was reviewed. [facility] Past Medical History Medical History Chronic respiratory failure with hypoxia, on home oxygen therapy COPD (chronic obstructive pulmonary disease) GERD (gastroesophageal reflux disease) Vertigo Surgical History Surgical History History of appendectomy Family History Family History Other History of appendectomy Social History Social History Smoking status: Former smoker Alcohol intake: never Substance use: never Spiritual care concerns: No Exam Narrative: GENERAL: Well-appearing, well-nourished, and in no acute distress. HEAD: Normocephalic, atraumatic. EYES: PERRLA and EOMI. ENT: Nares clear, no rhinorrhea or epistaxis. Mucous membranes moist. NECK: Supple. CHEST: Clear to auscultation. No respiratory distress. HEART: Regular rate and rhythm. No murmur heard. Normal peripheral pulses. ABDOMEN: Soft, nontender, nondistended, normal active bowel sounds. EXTREMITIES: Normal range of motion. No edema. SKIN: Warm, dry, no rash. NEURO: No focal deficits. Alert and oriented x3. PSYCH: Normal mood and affect. Course Course Emergency Course: CT scan of the abdomen pelvis showed evidence of possible colitis with colonic ileus versus developing large bowel obstruction also there is a patchy right basilar lung infiltrate concerning for aspiration. Patient's laboratory studies showed a elevated creatinine at 2.0 which is acute kidney injury given her normal baseline creatinine patient did have a slightly elevated troponin although in the setting of acute kidney injury this could be secondary to renal insufficiency. Vital Signs Vital signs: Vital Signs Temperature 36.4 C L 04/01/22 23:33 Pulse Rate 110 H 04/01/22 23:33 Respiratory Rate 18 04/01/22 23:33 Blood Pressure 109/73 04/01/22 23:33 Pulse Oximetry 100 04/01/22 23:33 Oxygen Delivery Nasal Cannula 04/01/22 23:33 Oxygen Flow Rate 3 04/01/22 23:33 Temperature 36.4 C L 04/01/22 23:3
[2022-04-02 03:07] LABS: Partial Thromboplastin Time 22.8 SECONDS (22.3-36.8)
--- NOTE | 2022-04-02 03:26 | PC.NURSE ---
Updated Caitlin WEBB at [facility] at this time.
[2022-04-02] MEDS: IPRATROPIUM BR 0.02% INH SOLN 0.5 MG/2.5 ML VIAL INHALATION ×4 (03:27→21:26)
[2022-04-02] MEDS: ALBUTEROL SULFATE NEB 2.5 MG/3 ML INH 5 MG INHALATION ×4 (03:27→21:26)
[2022-04-02 03:28] LABS: Influenza A QL RT-PCR Negative (Negative); Influenza B QL RT-PCR Negative (Negative); SARS-CoV-2 RNA PCR Negative
[2022-04-02 03:28] LABS: NT Pro B Type Natriuretic Pept 634 pg/mL (5-100); Troponin I 0.061 ng/mL (0.000-0.034)
[2022-04-02] MEDS: SODIUM CHLORIDE 0.9% IV 1,000 ML 250 ML IV CONT (04:17)
[2022-04-02 06:47] LABS: Troponin I 0.053 ng/mL (0.000-0.034)
[2022-04-02] MEDS: SODIUM CHLORIDE 0.9% IV 1,000 ML 125 ML IV CONT ×3 (08:04→21:30)
[2022-04-02] MEDS: ASPIRIN 81 MG CHEWABLE TABLET PO (08:43)
[2022-04-02 10:30] LABS: Troponin I 0.056 ng/mL (0.000-0.034)
[2022-04-02 11:48] LABS: Hematocrit 42.4 % (37.0-47.0); Hemoglobin 12.8 g/dL (12.0-15.0); Mean Corpuscular HGB Conc 30.2 g/dl (32-36); Mean Corpuscular Hemoglobin 29.5 pg (26-34); Mean Corpuscular Volume 97.7 fl (80-100); Mean Platelet Volume 9.7 fl (7.4-10.4); Platelet Count Result 371 k/mm3 (150-375); Red Blood Count 4.34 M/mm3 (4.2-5.4); Red Cell Distribution Width 14.1 % (11.5-14.5); White Blood Count 12.2 K/mm3 (4.5-10.0)
--- NOTE | 2022-04-02 12:08 | PM.CNGS ---
Assessment and Plan Assessment and plan (1) Colonic mass: Code(s): K63.89 - Other specified diseases of intestine Status: Acute Assessment and Plan: This is the main reason I was asked to see the patient. Incidental finding on CT scan of the abdomen and pelvis done early this morning because of complaints of intermittent abdominal pain shows possible partial colonic obstruction due to a narrow area with wall thickening of the colonic wall in the splenic flexure. ( see CT scan report). I have reviewed the CT scan with one of our radiologist here. I would recommend that we begin cleansing the patient using suppositories and enemas and see if GI can perform a minimally prepped flexible sigmoidoscopy to get to the area of abnormality and do biopsies to try to determine whether this seems to be inflammatory or malignant. Recommend GI consultation for further workup. This may need to be to be delayed in view of the elevated troponin if it is felt that she is having an acute cardiac event. I will order a serum CEA level as if this is up cancer is a higher probability. ( recently resulted and is elevated at 15.6 ). For now I would recommend keeping patient NPO given her maintenance IV fluids for her dehydration/ acute kidney injury adding PPI or H2 cornelio in view of her GERD. Will also check a follow-up obstructive series in a.m.. If significant abdominal distension or increases overnight NG tube may be of assistance. For now patient apparently is not nauseated nor vomiting. (2) Acute kidney injury: Code(s): N17.9 - Acute kidney failure, unspecified Status: Acute Assessment and Plan: Most likely secondary to dehydration as the patient apparently has decreased her oral intake over the last couple days. (3) Burst fracture of lumbar vertebra: Code(s): S32.001A - Stable burst fracture of unspecified lumbar vertebra, initial encounter for closed fracture Status: Acute Assessment and Plan: Unknown etiology, however radiologist states that there are not lytic lesions that would definitely go with metastasis. (4) GERD (gastroesophageal reflux disease): Code(s): K21.9 - Gastro-esophageal reflux disease without esophagitis Status: Acute Assessment and Plan: Apparently long history of this and the patient has a fairly large hiatal hernia on CT. Recommend IV PPI or H2 cornelio. (5) Chronic respiratory failure with hypoxia, on home oxygen therapy: Code(s): J96.11 - Chronic respiratory failure with hypoxia; Z99.81 - Dependence on supplemental oxygen Status: Acute (6) COPD (chronic obstructive pulmonary disease): Code(s): J44.9 - Chronic obstructive pulmonary disease, unspecified Status: Acute Assessment and Plan: The patient was recently hospitalized for this. However chest x-ray does not look bad other than CT showing possible infiltrates at right lung base. Patient does have a raspiness to her exhalation and occasional cough. Of note COVID, influenza and RSV testing negative History of Present Illness Consult details Consult date: 04/02/22 Reason for consult: abdominal pain ( And CT scan showing possible narrowing splenic flexure of colon.) Requesting physician: Heidi Calzada MD Narrative: Patient is an 81-year-old White female who presented the [facility] emergency department at night on 08/2021 with chief complaint of cough and shortness of breath.? subsequently the patient also stated that she was having periodic abdominal pain. Patient is a resident of a [place] [facility] now after recent admission in January here for extubation of COPD. (See records from that visit these were reviewed). Patient reports that she has been coughing and has had some congestion but states that currently her breathing is better. The patient states she also has history of chronic abdominal pain and has had discomfort in her abdomen.? Patient is somewhat
[2022-04-02 13:00] LABS: Carcinoembryonic Antigen 15.6 ng/mL (0.0-3.0)
[2022-04-02] MEDS: BISACODYL 10 MG SUPPOSITORY RECTAL (13:36)
[2022-04-02 17:13] LABS: Alanine Aminotransferase 14 U/L (6-35); Albumin Level 3.4 g/dL (3.5-5.1); Alkaline Phosphatase 67 U/L (38-126); Anion Gap 12 mmol/L (8-16); Bilirubin,Total 0.8 mg/dL (0.2-1.3); Blood Urea Nitrogen 91 mg/dL (7-17); Carbon Dioxide 28 mmol/L (22-30); Chloride 113 mmol/L (98-107); Estimated CRCL calculation 13 ml/min; Estimated Glomerular Filt Rate 19; Glucose 130 mg/dL (65-110); Potassium 3.9 mmol/L (3.4-5.0); Sodium 153 mmol/L (137-145)
[2022-04-02 17:42] LABS: Aspartate Amino Transferase 22 U/L (14-36)
--- NOTE | 2022-04-02 18:19 | PM.IMHP ---
H&P: HPI History of Present Illness Date/Time: 04/02/22 18:19 Chief Complaint: abdominal pain Narrative: ED-HPI narrative: Patient is a 81-year-old female presents the emergency department with chief complaint of cough and shortness of breath.? Patient reports that she has been coughing and has had some congestion but states that currently her breathing feels much better patient states she also has history of chronic abdominal pain and has had discomfort in her abdomen.? 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 with partial obstruction, proximal colonic dilatation, gaseous distention and liquid stool New T11 compression fracture since 02/01/2022; stable fractures of T12, L1, L3, L4 and L5 Emphysema Patchy consolidation, posterior right lung base, right lower lobe which may be due to aspiration pneumonitis or pneumonia Moderate-sized hiatal hernia spoke with patient's son and [id number], in the past patient has expressed she does not want to have any surgical intervention or chemo therapy, I spoke with Amara Pak, they will have family meeting tonight and let us know tomorrow for further planning. lease call [phone] patient is admitted as observation status Review of Systems Review of Systems: ROS unobtainable: Yes unobtainable due to medical condition PMFSH Past Medical History Medical History Chronic respiratory failure with hypoxia, on home oxygen therapy COPD (chronic obstructive pulmonary disease) GERD (gastroesophageal reflux disease) Vertigo Surgical History Surgical History History of appendectomy Family History Family History Other History of appendectomy Social History Social History Smoking status: Former smoker Alcohol intake: never Substance use: unknown Spiritual care concerns: No Meds Home Medications and Allergies Home Medications Medication Instructions Recorded Confirmed Type albuterol sulfate 90 mcg/actuation 1 puff inhalation PRN PRN 02/02/22 04/02/22 History aerosol inhaler Shortness Of Breath Or Wheezing fluticasone fur. 100 mcg-umeclid 1 inh inhalation DAILY 02/02/22 04/02/22 History 62.5 mcg-vilant 25 mcg inhalat.powder (Trelegy Ellipta) meclizine 25 mg tablet 25 mg PO PRN vertigo 02/02/22 04/02/22 History pantoprazole 40 mg tablet,delayed 40 mg PO DAILY 02/02/22 04/02/22 History release prednisone 10 mg tablet 10 mg PO DAILY 02/02/22 04/02/22 History hydrocodone 5 mg-acetaminophen 325 1 tablet PO Q6H PRN Pain #12 tabs 02/06/22 04/02/22 Rx mg tablet A and D Zinc Oxide Cream 10 % topical BID PRN Rash 04/02/22 04/02/22 History cholecalciferol (vitamin D3) 25 1,000 unit PO DAILY 04/02/22 04/02/22 History mcg (1,000 unit) tablet Allergies Allergy/AdvReac Type Severity Reaction Status Date / Time No Known Allergies Allergy Verified 04/02/22 03:34 Vital Signs Vital Signs - 24 hr 04/01/22 23:33 04/02/22 00:38 04/02/22 00:40 Temperature 97.5 F L Pulse Rate 110 H 108 H Respiratory Rate 18 21 H Blood Pressure 109/73 104/76 Pulse Oximetry 100 98 99 Oxygen Delivery Nasal Cannula Nasal Cannula Oxygen Flow Rate 3 3 04/02/22 01:42 04/02/22 02:54 04/02/22 03:19 Temperature Pulse Rate 107 H 109 H 105 H Respiratory Rate 2
--- NOTE | 2022-04-02 18:45 | ADMGEN ---
This patient, Erlinda Pak, was admitted to [facility] Surg Room 317-01 at 1820. Patient/family oriented to hospital policies and general routines including ID bracelet, bed and alarms, visiting hours, pain management, procedures, bathroom and other care routines, personal items, smoking policy, room service/diet, and visiting hours. Information on how to activate the Rapid Response Team has been discussed. Patient/Family are encouraged to report perceived risks to care and to ask questions if they do not understand what they are told or what they should do.
[2022-04-02 23:24] LABS: Glucose Point of Care 132 mg/dl (65-105)
--- NOTE | 2022-04-02 23:32 | PC.NURSE ---
called MD Singletary about pt condition. pt remains lethargic at this time.
--- NOTE | 2022-04-02 23:37 | PC.NURSE ---
spoke to Steph about concerns for of pt condition. Steph to review chart. Awaiting further instruction, informed about sepsis flag.
[2022-04-03] VITALS (8 sets, daily range): BP systolic 120–122; BP diastolic 62–72; PULSE 90–110; RESP 20–24; TEMP 35.8–36.1; O2SAT 94–97
--- NOTE | 2022-04-03 00:10 | PC.NURSE ---
per [place] stat bmp and tapia insertion r/t retention.
[2022-04-03] MEDS: ALBUTEROL SULFATE NEB 2.5 MG/3 ML INH 5 MG INHALATION ×3 (01:55→13:16)
[2022-04-03] MEDS: IPRATROPIUM BR 0.02% INH SOLN 0.5 MG/2.5 ML VIAL INHALATION ×3 (01:55→13:16)
[2022-04-03 05:20] LABS: Glucose Point of Care 125 mg/dl (65-105)
[2022-04-03] MEDS: SODIUM CHLORIDE 0.9% IV 1,000 ML 125 ML IV CONT ×2 (05:34→13:27)
[2022-04-03 07:50] LABS: Hematocrit 42.4 % (37.0-47.0); Hemoglobin 12.3 g/dL (12.0-15.0); Mean Corpuscular Hemoglobin 28.3 pg (26-34); Mean Corpuscular Volume 97.5 fl (80-100); Mean Platelet Volume 9.8 fl (7.4-10.4); Platelet Count Result 356 k/mm3 (150-375); Red Blood Count 4.35 M/mm3 (4.2-5.4); Red Cell Distribution Width 14.1 % (11.5-14.5); White Blood Count 13.8 K/mm3 (4.5-10.0)
[2022-04-03 08:17] LABS: Alanine Aminotransferase 14 U/L (6-35); Albumin Level 3.4 g/dL (3.5-5.1); Alkaline Phosphatase 67 U/L (38-126); Anion Gap 9 mmol/L (8-16); Aspartate Amino Transferase 23 U/L (14-36); Bilirubin,Total 0.6 mg/dL (0.2-1.3); Blood Urea Nitrogen 76 mg/dL (7-17); Calcium 8.2 mg/dL (8.4-10.2); Carbon Dioxide 29 mmol/L (22-30); Chloride 116 mmol/L (98-107); Estimated CRCL calculation 19 ml/min; Estimated Glomerular Filt Rate 31; Glucose 133 mg/dL (65-110); Magnesium 2.8 mg/dL (1.6-2.3); Potassium 3.1 mmol/L (3.4-5.0); Sodium 154 mmol/L (137-145)
--- NOTE | 2022-04-03 09:36 | PCSTNOTE ---
Please refer to the Bedside Swallow Evaluation in the EMR. Please note, silent aspiration cannot be ruled out at bedside.
--- NOTE | 2022-04-03 12:12 | PM.PNGS ---
Progress Note: A&P Assessment and Plan (1) Colonic mass: Code(s): K63.89 - Other specified diseases of intestine Status: Acute Assessment and Plan: Patient's situation discussed with Dr. Calzada. He was able to contact patient's son. Without us knowing it apparently the family has made a decision not to pursue significant noninvasive or invasive treatments for the patient. ( she had [facility]). Therefore, he decided not to have a colonoscopy done for the patient which would be the recommendation to try to pursue diagnosis of this colonic abnormality. Therefore, since surgery has been ruled out I will sign off at this point. Dr. Calzada knows that if things change and further investigations or decisions with surgical implications are needed he can call for a repeat consultation. Palliative care may involve keeping the patient on a liquid diet, pain medication, and mild sedation. Patient is already on chronic O2 due to his her COPD. Unfortunately there is a possibility of perforation of the cecum with peritonitis which be more difficult to palliate. Subjective Subjective Date/Time Seen: 04/03/22 08:12 Patient reports: no new complaints Interval history: Patient seems slightly more alert than yesterday. Today she could tell me her date. As best I can tell she is denying pain today. Stated she thought it was January. Review of Systems Review of Systems: ROS unobtainable: Yes unobtainable due to medical condition Exam Const: General: cooperative, comfortable, alert and awake HENMT: Head: normal to inspection Other: Patient's lips are dry and crusting. Eyes: Sclera: sclerae normal Pupils: Equal, round and reactive pupils present Neck: Neck: normal visual inspection and no JVD Resp: Effort & Inspection: normal respiratory effort Other: Occasional Chintan with inspiration as if there is phlegm over her larynx. Cardio: Jugular venous distension: no JVD GI: Inspection: distended and scar ( Right lower quadrant, transverse) Auscultation: normal bowel sounds Rectal Exam: deferred Other: no real tenderness in the abdomen with gentle examination. Neuro: Cranial nerves: Yes Equal, round and reactive pupils present Speech: dysarthria and Other speech findings present (Neuro) ( at times patient's speech is garbled.) Other: Oriented x1 Extrem: Other: No real edema of the lower extremities below the knee. Objective Data Vital Signs Vital Signs: Vital Signs - 24 hr 04/02/22 13:03 04/02/22 14:06 04/02/22 15:05 Temperature Pulse Rate 100 107 H 108 H Respiratory Rate 24 H 20 21 H Blood Pressure 116/79 107/73 Pulse Oximetry 99 98 Oxygen Delivery Oxygen Flow Rate 04/02/22 15:21 04/02/22 16:13 04/02/22 17:21 Temperature Pulse Rate 105 H 107 H 100 Respiratory Rate 25 H 17 18 Blood Pressure 112/89 110/84 Pulse Oximetry 99 99 Oxygen Delivery Oxygen Flow Rate 04/02/22 20:00 04/02/22 21:26 04/02/22 21:35 Temperature Pulse Rate 105 H Respiratory Rate 22 H Blood Pressure Pulse Oximetry 99 98 Oxygen Delivery Nasal Cannula Nasal Cannula Oxygen Flow Rate 3 3 04/02/22 21:43 04/02/22 22:22 04/03/22 01:55 Temperature 36.1 C L Pulse Rate 101 H 100 99 Respiratory Rate 24 H 20 22 H Blood Pressure 136/73 Pulse Oximetry 96 Oxygen Delivery Oxygen Flow Rate 04/03/22 02:10 04/03/22 06:12 04/03/22 08:00 Temperature 36.1 C L Pulse Rate 103 H 110 H Respiratory Rate 22 H 20 Blood Pressure 122/72 Pulse Oximetry 97 96 Oxygen Delivery Nasal Cannula Oxygen Flow Rate 3 04/03/22 09:06 04/03/22 09:08 Temperature Pulse Rate 90 Respiratory Rate 20 Blood Pressure Pulse Oximetry 96 Oxygen Delivery Nasal Cannula Oxygen Flow Rate 3 Intake/Output Intake/Output: Intake & Output 03/31/22 04/01/22 04/02/22 04/03/22 23:59 23:59 23:59 23:59 Intake Total 3150 1050 Outpu
--- NOTE | 2022-04-03 13:51 | WPDGICN ---
Assessment and Plan Assessment and plan (1) Colonic mass: Code(s): K63.89 - Other specified diseases of intestine Status: Acute Assessment and Plan: Patient with apparent colonic mass and partial obstruction by CT scanning. Appears be located near the splenic flexure. CEA is elevated over 15. Suggesting this likely is a carcinoma. I have discussed this case with the surgeon in to my understanding family does not want invasive testing such as a colonoscopy performed. I discussed surgical decompression with the surgeon who likewise is not planning this given family wishes for noninvasive testing. It appears clinically the patient likely has a carcinoma with near obstruction near the splenic flexure. I will defer further management to primary care service and discussions with family. (2) Aspiration pneumonia: Code(s): J69.0 - Pneumonitis due to inhalation of food and vomit Status: Acute Assessment and Plan: Patient appears to have some oropharyngeal dysphagia. She has very gurgly throat. NG tube may be preferred for nutrition or preparation for any consider colonoscopy. Would be cautious with any dietary intake at this point as she may be at risk of aspiration. In fact appears to have aspiration and mild pneumonia. (3) COPD (chronic obstructive pulmonary disease): Code(s): J44.9 - Chronic obstructive pulmonary disease, unspecified Status: Acute GI Consult Note Consult date/time: 04/03/22 13:51 Reason for consult: Abnormal CT scan, possible splenic flexure mass HPI: Erlinda Pak is a 81 year old female I am asked to see at the request of the hospitalist service. Patient currently resident of a shelter. Patient presented to the emergency room [id number] because of cough and shortness of breath. Patient was also noted to have intermittent abdominal pain. Patient has dimension is unable to give any useful history. Apparently admitted to the hospital her recently because of exacerbation of COPD. Patient ultimately underwent scanning CT scan suggested a nearly obstructing mass at near the splenic flexure. For this reason I have been consulted. Patient is unable to add any history. Review of Systems Review of Systems: Review of systems as much as can be obtained is not significant. Minimal history obtained from patient. [facility] Past Medical History Medical History Chronic respiratory failure with hypoxia, on home oxygen therapy COPD (chronic obstructive pulmonary disease) GERD (gastroesophageal reflux disease) Vertigo Surgical History Surgical History History of appendectomy Family History Family History Other History of appendectomy Social History Social History Smoking status: Former smoker Alcohol intake: never Substance use: unknown Spiritual care concerns: No Meds Home Medications and Allergies Home Medications Medication Instructions Recorded Confirmed Type albuterol sulfate 90 mcg/actuation 1 puff inhalation PRN PRN 02/02/22 04/02/22 History aerosol inhaler Shortness Of Breath Or Wheezing fluticasone fur. 100 mcg-umeclid 1 inh inhalation DAILY 02/02/22 04/02/22 History 62.5 mcg-vilant 25 mcg inhalat.powder (Trelegy Ellipta) meclizine 25 mg tablet 25 mg PO PRN vertigo 02/02/22 04/02/22 History pantoprazole 40 mg tablet,delayed 40 mg PO DAILY 02/02/22 04/02/22 History release prednisone 10 mg tablet 10 mg PO DAILY 02/02/22 04/02/22 History hydrocodone 5 mg-acetaminophen 325 1 tablet PO Q6H PRN Pain #12 tabs 02/06/22 04/02/22 Rx mg tablet A and D Zinc Oxide Cream 10 % topical BID PRN Rash 04/02/22 04/02/22 History cholecalciferol (vitamin D3) 25 1,000 unit PO DAILY 04/02/22 04/02/22 Hist
--- NOTE | 2022-04-03 15:51 | PM.DS ---
DS: Admitting Diagnosis Discharge Date 04/03/2022 Admitting Diagnosis abdominal pain DS: Discharge Diagnosis Discharge Diagnosis (1) Colonic mass: Code(s): K63.89 - Other specified diseases of intestine Status: Acute Assessment and Plan: ED-HPI narrative: Patient is a 81-year-old female presents the emergency department with chief complaint of cough and shortness of breath.? Patient reports that she has been coughing and has had some congestion but states that currently her breathing feels much better patient states she also has history of chronic abdominal pain and has had discomfort in her abdomen.? 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 with partial obstruction, proximal colonic dilatation, gaseous distention and liquid stool New T11 compression fracture since 02/01/2022; stable fractures of T12, L1, L3, L4 and L5 Emphysema Patchy consolidation, posterior right lung base, right lower lobe which may be due to aspiration pneumonitis or pneumonia Moderate-sized hiatal hernia spoke with patient's son and [id number], in the past patient has expressed she does not want to have any surgical intervention or chemo therapy, I spoke with Amara Pak, they will have family meeting tonight and let us know tomorrow for further planning. lease call [phone] (2) Colitis: Code(s): K52.9 - Noninfective gastroenteritis and colitis, unspecified Status: Acute Assessment and Plan: patient seen by general surgeons and further workup to follow, treat the patient with Zosyn and continue to monitor (3) Aspiration pneumonia: Code(s): J69.0 - Pneumonitis due to inhalation of food and vomit Status: Acute Assessment and Plan: patient remains clinically stable being treated with Zosyn. DS: Summary Hospital Course Reason for hospitalization: ED-HPI narrative: Patient is a 81-year-old female presents the emergency department with chief complaint of cough and shortness of breath.? Patient reports that she has been coughing and has had some congestion but states that currently her breathing feels much better patient states she also has history of chronic abdominal pain and has had discomfort in her abdomen.? 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 Time Spent with Patient Time attestation: Total time spent providing and/or coordinating discharge services: Exam Narrative: shavon
== END 2022-04-03 20:00 | disposition hospice, inpatient (51) ==
LOC: ANHED 04-02 03:37 → ANH3MEDSUR 04-02 19:20 → ANHIMU 04-04 10:42
PROVIDERS: Internal Medicine; Surgery; Admitting Provider Family Medicine; Emergency Provider Emergency Medicine; PCP Internal Medicine; Visit Provider Family Medicine
DX: K63.89 Other specified diseases of intestine (principal); K52.9 Noninfective gastroenteritis and colitis, unspecified; J69.0 Pneumonitis due to inhalation of food and vomit; J96.11 Chronic respiratory failure with hypoxia; Z99.81 Dependence on supplemental oxygen; J43.9 Emphysema, unspecified; K21.9 Gastro-esophageal reflux disease without esophagitis; R00.0 Tachycardia, unspecified; R94.31 Abnormal electrocardiogram [ECG] [EKG]; R77.8 Other specified abnormalities of plasma proteins; N17.9 Acute kidney failure, unspecified; S32.001A Stable burst fracture of unspecified lumbar vertebra, initial encounter for closed fracture; K44.9 Diaphragmatic hernia without obstruction or gangrene; Z20.822 Contact with and (suspected) exposure to COVID-19; Z87.891 Personal history of nicotine dependence; Z79.51 Long term (current) use of inhaled steroids; Z79.891 Long term (current) use of opiate analgesic; Z79.52 Long term (current) use of systemic steroids; Z79.899 Other long term (current) drug therapy
CPT/HCPCS: 36415; 51701; 71045; 74019; 74176; 80053; 81001; 82378; 82948; 83605; 83690; 83735; 83880; 84145; 84484; 85025; 85027; 85610; 85730; 87636; 92610; 93005; 94640; 96361; 96365; 96366; 99285; A9270; G0378; J2543; J7030

== ENCOUNTER 2022-04-03 20:19 | HOS | payer OTHER, MEDICARE, MEDICAID, SELFPAY ==
--- NOTE | 2022-04-03 20:30 | PC.NURSE ---
Admit inpatient [facility] hospice 04/03/22 @ 1999. Patient moved to Room 318 (previously Room 317-01).
[2022-04-03 22:00] VITALS: BP 107/32; PULSE 70; RESP 18; TEMP 36; O2SAT 100
[2022-04-03] MEDS: HYDROmorphone HCL/PF (*CRX) 50 MG in SODIUM CHLORIDE 0.9% IV 95 ML IV CONT (22:31)
[2022-04-03] MEDS: ARTIFICIAL TEARS OPHTH SOLN 15 ML BOTTLE 1 DROP EACH EYE (22:39)
[2022-04-03 23:52] VITALS: BMI 25.2
[2022-04-04 00:27] VITALS: PULSE 70; RESP 18; O2SAT 100
[2022-04-04 08:00] VITALS: BP 104/59; PULSE 93; RESP 12; TEMP 36.3; O2SAT 96
[2022-04-04] MEDS: GLYCOPYRROLATE INJ (*SP) 0.2 MG/ML VIAL 0.1 MG IV PUSH (12:45)
[2022-04-04] MEDS: HYDROmorphone HCL INJ (*CRX) 1 MG/ML SYR 0.5 MG IV PUSH (12:45)
--- NOTE | 2022-04-04 17:03 | PM.IMHP ---
H&P: HPI History of Present Illness Date/Time: 04/04/22 17:03 Chief Complaint: Cough and shortness of breath Narrative: this unfortunate 81-year-old female was recently discharged from [facility] after COPD exacerbation. She has chronic respiratory failure and is on 3 L of oxygen at home. She was brought the emergency department because of cough and increased shortness of breath. She was found to have right lower lung infiltrate possibly due to aspiration versus community-acquired pneumonia. There is also suggestion for bowel obstruction. CT the abdomen pelvis showed a mass at the splenic flexure with partial obstruction of the bowel as well as a new T11 compression fracture.. Her CEA was over 15. Creatinine was elevated at 2.4 consistent with acute kidney injury. She was seen by Gastroenterology and surgery. Family did not want invasive testing. Surgery did not offer bowel decompression due to her advanced age and comorbidities. Given this scenario family opted for comfort care only and she was admitted to the inpatient hospice service because of uncontrolled dyspnea and pain. Review of Systems Review of Systems: ROS unobtainable: Yes unobtainable due to medical condition PMFSH Past Medical History Medical History Chronic respiratory failure with hypoxia, on home oxygen therapy COPD (chronic obstructive pulmonary disease) GERD (gastroesophageal reflux disease) Vertigo Surgical History Surgical History History of appendectomy Family History Family History Other History of appendectomy Social History Social History Smoking status: Former smoker Alcohol intake: never Substance use: unknown Spiritual care concerns: Yes (hospice) Meds Home Medications and Allergies Home Medications Medication Instructions Recorded Confirmed Type albuterol sulfate 90 mcg/actuation 1 puff inhalation PRN PRN 02/02/22 04/02/22 History aerosol inhaler Shortness Of Breath Or Wheezing fluticasone fur. 100 mcg-umeclid 1 inh inhalation DAILY 02/02/22 04/02/22 History 62.5 mcg-vilant 25 mcg inhalat.powder (Trelegy Ellipta) meclizine 25 mg tablet 25 mg PO PRN vertigo 02/02/22 04/02/22 History pantoprazole 40 mg tablet,delayed 40 mg PO DAILY 02/02/22 04/02/22 History release prednisone 10 mg tablet 10 mg PO DAILY 02/02/22 04/02/22 History hydrocodone 5 mg-acetaminophen 325 1 tablet PO Q6H PRN Pain #12 tabs 02/06/22 04/02/22 Rx mg tablet A and D Zinc Oxide Cream 10 % topical BID PRN Rash 04/02/22 04/02/22 History cholecalciferol (vitamin D3) 25 1,000 unit PO DAILY 04/02/22 04/02/22 History mcg (1,000 unit) tablet Allergies Allergy/AdvReac Type Severity Reaction Status Date / Time No Known Allergies Allergy Verified 04/02/22 03:34 Vital Signs Vital Signs - 24 hr 04/03/22 22:00 04/04/22 00:27 04/04/22 08:00 Temperature 96.8 F L 97.3 F L Pulse Rate 70 70 93 Respiratory Rate 18 18 12 Blood Pressure 107/32 L 104/59 L Pulse Oximetry 100 100 96 Oxygen Delivery Nasal Cannula Oxygen Flow Rate 3 04/04/22 08:00 Temperature Pulse Rate Respiratory Rate Blood Pressure Pulse Oximetry 96 Oxygen Delivery Nasal Cannula Oxygen Flow Rate 3 Exam Narrative: frail elderly female recumbent in hospital bed is mildly tachypneic and unresponsive to verbal or tactile stimuli neck without JVD chest with coarse crackles and rhonchi throughout heart sounds muffled without audible murmurs or gallops and rate regular abdomen is protuberant with absent bowel sounds and no palpable mass extremities without edema musculoskeletal without gross deformity to visual inspection cranial nerves symmetric to visual inspection Assessment and Plan Assessment and plan (1) Pal
[2022-04-04 20:00] VITALS: BP 70/41; PULSE 127; RESP 18; TEMP 36.8; O2SAT 87
[2022-04-04] MEDS: HYDROmorphone HCL/PF (*CRX) 50 MG in SODIUM CHLORIDE 0.9% IV 95 ML IV CONT (21:23)
[2022-04-05 08:00] VITALS: PULSE 104; RESP 20; TEMP 36.2; O2SAT 95
[2022-04-05 09:37] VITALS: BP 72/39
--- NOTE | 2022-04-05 16:29 | PM.IMPN ---
Progress Note: A&P Assessment and Plan (1) Palliative care encounter: Code(s): Z51.5 - Encounter for palliative care Status: Acute Assessment and Plan: Meets inpatient hospice criteria due to requiring continuous IV hydromorphone for control of dyspnea and pain remainder of palliative regimen as ordered (2) Colonic mass: Code(s): K63.89 - Other specified diseases of intestine Status: Acute (3) Aspiration pneumonia: Code(s): J69.0 - Pneumonitis due to inhalation of food and vomit Status: Acute (4) Acute kidney injury: Code(s): N17.9 - Acute kidney failure, unspecified Status: Acute (5) Compression fracture of lumbar vertebrae, non-traumatic: Code(s): M48.56XA - Collapsed vertebra, not elsewhere classified, lumbar region, initial encounter for fracture Status: Acute (6) Acute on chronic respiratory failure with hypoxia and hypercapnia: Code(s): J96.21 - Acute and chronic respiratory failure with hypoxia; J96.22 - Acute and chronic respiratory failure with hypercapnia Status: Acute (7) COPD (chronic obstructive pulmonary disease): Code(s): J44.9 - Chronic obstructive pulmonary disease, unspecified Status: Acute Subjective Date/time seen: 04/05/22 16:29 Interval history: palliative f/u Remains comfortable. Review of Systems Review of Systems: ROS unobtainable: Yes unobtainable due to medical condition Exam Narrative: frail elderly female recumbent in hospital bed is mildly tachypneic and unresponsive to verbal or tactile stimuli neck without JVD chest with coarse crackles and rhonchi throughout heart sounds muffled without audible murmurs or gallops and rate regular abdomen is protuberant with absent bowel sounds and no palpable mass extremities without edema musculoskeletal without gross deformity to visual inspection cranial nerves symmetric to visual inspection Objective Data Vital Signs Vital Signs: Vital Signs - 24 hr 04/04/22 20:00 04/04/22 20:00 04/05/22 09:37 Temperature 98.2 F Pulse Rate 127 H Respiratory Rate 18 Blood Pressure 70/41 L 72/39 L Pulse Oximetry 87 L Oxygen Delivery Nasal Cannula Oxygen Flow Rate 3 04/05/22 08:00 Temperature 97.1 F L Pulse Rate 104 H Respiratory Rate 20 Blood Pressure Pulse Oximetry 95 Oxygen Delivery Oxygen Flow Rate Intake/Output Intake/Output: Intake & Output 04/02/22 04/03/22 04/04/22 04/05/22 23:59 23:59 23:59 23:59 Intake Total 11 Balance 11 Meds/Results Medications: Active Medications Generic Name Dose Route Start Last Admin Trade Name Freq PRN Reason Stop Dose Admin Acetaminophen 650 mg 04/03/22 21:20 Acetaminophen 650 Mg Suppository RECTAL Q4H PRN Fever Artificial Tears 1 drop 04/03/22 21:19 04/03/22 22:39 Artificial Tears Ophth Soln 15 Ml Bottle EACH EYE 1 drop Q4H PRN Administration DRY EYES Bisacodyl 10 mg 04/03/22 21:20 Bisacodyl 10 Mg Suppository RECTAL DAILY PRN Constipation Diazepam 5 mg 04/03/22 21:16 Diazepam Inj (*Crx) 10 Mg/2 Ml Syringe IV PUSH Q4H PRN Anxiety Glycopyrrolate 0.1 mg 04/03/22 21:20 04/04/22 12:45 Glycopyrrolate Inj (*Sp) 0.2 Mg/Ml Vial IV PUSH 0.1 mg Q4H PRN Administration increased secretions Hydromorphone HCl 0.5 mg 04/03/22 21:15 04/04/22 12:45 Hydromorphone Hcl Inj (*Crx) 1 Mg/Ml Syr IV PUSH 0.5 mg Q2H PRN Administration PAIN/SOB Hydromorphone HCl 50 mg/ 100 mls @ 0.5 mls/hr 04/03/22 21:20 04/04/22 21:23 Sodium Chloride IV CONT 0.25 mg/hr .Q24H LORE[place] 0.5 mls/hr Administration 0.25 MG/HR Prochlorperazine Edisylate 10 mg 04/03/22 21:18 Prochlorperazine Edisylate 10 Mg/2 Ml Vial IV PUSH Q4H PRN Nausea And Vomiting
[2022-04-05 19:50] VITALS: PULSE 120; RESP 14; O2SAT 96
[2022-04-05 20:00] VITALS: BP 68/44; PULSE 120; RESP 14; TEMP 36.7; O2SAT 96
[2022-04-06 06:30] VITALS: PULSE 85
[2022-04-06] MEDS: HYDROmorphone HCL/PF (*CRX) 50 MG in SODIUM CHLORIDE 0.9% IV 95 ML IV CONT (06:30)
[2022-04-06 08:00] VITALS: O2SAT 96
[2022-04-06 13:40] VITALS: BP 84/18; PULSE 101; RESP 16; TEMP 36; O2SAT 92
[2022-04-06 20:00] VITALS: BP 96/48; PULSE 94; RESP 20; TEMP 36.3; O2SAT 90
[2022-04-07 06:57] VITALS: PULSE 68; RESP 10
[2022-04-07] MEDS: HYDROmorphone HCL/PF (*CRX) 50 MG in SODIUM CHLORIDE 0.9% IV 95 ML IV CONT (06:57)
[2022-04-07 08:00] VITALS: BP 85/51; PULSE 93; RESP 18; TEMP 35.7; O2SAT 73; O2SAT 90
[2022-04-07] MEDS: HYDROmorphone HCL INJ (*CRX) 1 MG/ML SYR 0.5 MG IV PUSH (17:46)
[2022-04-07] MEDS: GLYCOPYRROLATE INJ (*SP) 0.2 MG/ML VIAL 0.1 MG IV PUSH (17:47)
[2022-04-07] MEDS: diazePAM INJ (*CRX) 10 MG/2 ML SYRINGE 5 MG IV PUSH (18:06)
[2022-04-07 20:00] VITALS: BP 82/44; PULSE 98; RESP 16; TEMP 36.2; O2SAT 98
[2022-04-08 06:10] VITALS: PULSE 58; RESP 8
[2022-04-08 08:07] VITALS: PULSE 0; RESP 0
[2022-04-08] MEDS: HYDROmorphone HCL/PF (*CRX) 50 MG in SODIUM CHLORIDE 0.9% IV 95 ML IV CONT (08:07)
--- NOTE | 2022-04-08 12:01 | PM.DDS ---
Discharge Summary Date and Time Date of : 04/08/22 Time of : 07:50 Provider Pronounced By: April Martinez RN Probable Cause of Probable Cause of : colon neoplasm with partial bowel obstruction Summary Hospital Course: Admitted to inpatient hospice service due to uncontrolled pain and dyspnea. Medications titrated to comfort. Mrs. Pak peacefully. Additional Data Confirmation of as documented by pronouncing clinician: Pupillary Reflex, Palpable Pulses, Response to Stimuli, Heart Tones and Breath Sounds Name of Provider Notified: Dr. Elder Dockery Time Provider Notified: 08:15 Family Requests Autopsy: No Electrical Engineering Technologist Notified: Yes Date [facility] Notified of : 04/08/22 Time [facility] Notified of : 08:23
== END 2022-04-08 07:50 | disposition expired | DRG 951 ==
PROVIDERS: Admitting Provider Internal Medicine; PCP Internal Medicine; Visit Provider Internal Medicine
DX: Z51.5 Encounter for palliative care (principal); J96.21 Acute and chronic respiratory failure with hypoxia; J96.22 Acute and chronic respiratory failure with hypercapnia; J69.0 Pneumonitis due to inhalation of food and vomit; K56.690 Other partial intestinal obstruction; N17.9 Acute kidney failure, unspecified; M48.56XA Collapsed vertebra, not elsewhere classified, lumbar region, initial encounter for fracture; X58.XXXA Exposure to other specified factors, initial encounter; D37.4 Neoplasm of uncertain behavior of colon; J44.9 Chronic obstructive pulmonary disease, unspecified; K21.9 Gastro-esophageal reflux disease without esophagitis; Z90.49 Acquired absence of other specified parts of digestive tract; Z87.891 Personal history of nicotine dependence; Z99.81 Dependence on supplemental oxygen
CPT/HCPCS: A9270; J1170; J3360